=== PATIENT | female | born 1970 | race Caucasian/White ===

== ENCOUNTER 2020-11-26 22:03 | Emergency (ER) | payer OTHER, SELFPAY ==
--- NOTE | ~2020-11-26 | CT_ITS ---
EXAMINATION: CTA chest PE abdomen pel EXAM DATE: 11/27/2020 01:13 INDICATION: Elevated D-dimer, tachycardia. TECHNIQUE: Spiral CTA of the chest (pulmonary arteries) was performed with 100 cc Omnipaque 350 intr avenous contrast injection. Images were acquired during the pulmonary arterial phase. Coronal maxi mum intensity projection 3D-reconstructions were created by the technologist on dedicated workstation . Axial, coronal and sagittal reformatted images were reviewed. Spiral CT of the abdomen and pelvis was then performed with the same intravenous contrast injection. Axial, coronal and sagittal reform atted images were reviewed. The dose-length product (DLP) for this examination was 2289.47 mGy-cm. The exposure was tailored according to patient size (auto mA exposure control), and iterative recons truction (ASIR) was used as additional dose reduction technique. There is no prior study for compari son. FINDINGS: CHEST: Suboptimal pulmonary arterial opacification, the aorta is more opacified. No central pulmonar y emboli or filling defects suspected. No thoracic aortic dissection. The lungs are clear. There are no pleural or pericardial effusions. Tracheobronchial tree is patent. There is no mediastinal , hilar or axillary lymphadenopathy. There is no pneumothorax. Heart normal in size. No evidenc e of coronary arterial calcification. ABDOMEN PELVIS: There is delayed left-sided nephrogram with mild left hydroureteronephrosis, mildly d iffusely edematous and enlarged left kidney. Probably the result of low density stone obstructing the ureteropelvic junction which appears linear, about 4 mm in diameter on the axial sequences by about 1 cm in length. Large much more dense stones casting the left inferior moiety. There is a 4.4 cm cyst ic region in the lower pole of the left kidney with cortical thinning, and a dependent stone inside o f it measuring 7 mm, probably a chronically obstructed inferior calyx. There are several regions of i ll-defined left renal cortical enhancement which are suspicious for acute pyelonephritis. There is mo derate left perinephric fat stranding. Several punctate right calyceal stones. There is right liver lobe, segment 7 lesion with incomplete peripheral nodular enhancement consistent with hemangioma measuring 2.7 cm. The liver, spleen, adrenal glands and pancreas are otherwise unre markable. Gallbladder is unremarkable. No biliary obstruction. The uterus is unremarkable. The bladder is unremarkable. There is no retroperitoneal or pelvic lymphadenopathy. The appendix is normal. The stomach and small bowel are unremarkable. There is expected amount of c olonic stool. No free intraperitoneal gas. There are no osteoblastic or osteolytic lesions identi fied. The pelvic floor was excluded from the study. IMPRESSION: 1. Low-density left UPJ stone, mild hydronephrosis. Delayed nephrogram and heterogeneous left renal e nhancement suspicious for pyelonephritis. Large left inferior moiety stone. consult. 2. Punctate right nephrolithiasis. 3. Liver hemangioma. Reviewed, dictated and finalized at location A. IMPRESSION: 1. Low-density left UPJ stone, mild hydronephrosis. Delayed nephrogram and hete rogeneous left renal enhancement suspicious for pyelonephritis. Large left infe rior moiety stone. consult. 2. Punctate right nephrolithiasis. 3. Liver hemangioma.
[2020-11-26 22:15] VITALS: BP 100/63; PULSE 122; RESP 20; TEMP 36.9; O2SAT 100
--- NOTE | 2020-11-26 22:29 | ECG_ITS ---
Measurements Intervals [place] Rate: 115 P: 75 FL: 137 QRS: 42 QRSD: 92 T: 56 QT: 298 QTc: 413 Interpretive Statements SINUS TACHYCARDIA EARLY PRECORDIAL R/S TRANSITION BASELINE ARTIFACT- I, II, III, AVR, AVL, AVF, V5-V6 ABNORMAL ECG Electronically Signed On 11-28-2020 6:59:12 CDT by Nader Walls D.O.
--- NOTE | 2020-11-26 22:30 | ED.GENADULT ---
HPI - General Adult General Chief complaint: Abdominal Pain Stated complaint: sweaty, body aches,chills Source: patient Mode of arrival: ambulatory Limitations: no limitations History of Present Illness HPI narrative: Amanda is a 50F with a PMH of recent shoulder surgery but otherwise healthy that presented to ED feeling ill for a couple days. She started having chills and body aches 2 days ago that started in her shoulders and went down her back. Now they are the worst in her abdomen and go to her back worse on the left than the right. She has SOB but no CP. She admits nausea but no vomiting. She admits abdominal cramps but no diarrhea. She does not have her covid vaccine. Related Data Home Medications Medication Instructions Recorded Confirmed montelukast [Singulair] 10 mg PO DAILY 11/26/20 11/27/20 oxycodone-acetaminophen See Rx Instructions .ROUTE .COMPLEX 11/27/20 11/27/20 Allergies Allergy/AdvReac Type Severity Reaction Status Date / Time No Known Allergies Allergy Verified 11/27/20 04:16 Review of Systems Constitutional: Constitutional: Reports chills and Reports fatigue Eyes: Eyes: Reports no additional eye complaints ENT: Reports system reviewed and no additional complaints, except as documented Cardiovascular: Cardiovascular: Reports no additional cardiovascular complaints Respiratory: Respiratory: Reports as per HPI Gastrointestinal: Gastrointestinal: Reports abdominal pain, Denies diarrhea, Reports nausea and Denies vomiting Genitourinary: Genitourinary: Reports no additional female genitourinary complaints Musculoskeletal: Musculoskeletal: Reports myalgias and Reports muscle cramps Integumentary/Breasts: Skin/Breast: Reports system reviewed and no additional complaints, except as docu Neurologic: Reports system reviewed and no additional complaints, except as documented Psychiatric: Psychiatric: Reports no additional psychiatric complaints Endocrine: Endocrine: Reports no additional endocrine complaints Hematologic/Lymphatic: Hematologic/Lymphatic: Reports no additional hematologic/lymphatic complaints Allergic/Immunologic: Allergic/Immunologic: Reports no additional allergic/immunologic complaints [facility] Past Medical History Medical History (Updated 11/28/20 @ 07:54 by Harsha Lara MD) Hydronephrosis, left Kidney stone Obesity Sepsis Family History Family History Mother Pancreatic cancer Father Hypothyroidism Social History Social History Smoking status: Never smoker Second hand tobacco smoke exposure: No Drinks per week: 12 Substance use: current Substance use type: marijuana Last use: 11/23/20 Spiritual care concerns: No Exam Const: General: alert; No confusion Orientation/consciousness: patient oriented x3 Limitations: No altered mental status Other: In mild distress. HENMT: Head: normal to inspection Other: atrauamtic Eyes: Conjunctivae: conjunctivae normal Pupils: Equal, round and reactive pupils present Neck: Neck: normal visual inspection Chest: Chest palpation & inspection: normal inspection of the chest Resp: Effort & Inspection: normal respiratory effort, not labored, no retractions and no use of accessory muscles Auscultation: clear to auscultation bilaterally Cardio: Rate: tachycardic Rhythm: regular rhythm Heart sounds: no murmurs GI: Inspection: non-distended GI Palp: Yes Soft to palpation, Yes Tenderness to palpation present (GI) (Diffuse TTP ), No Guarding due to palpation present (GI) and No Rigid due to palpation : Other: Left sided CVA tenderness Skin: General skin exam: normal color Rashes: no rashes Neuro: General: patient oriented x3, moves all extremities, no focal motor deficits and CN's II-XI intact bilaterally Extrem: General: normal to inspection Psych: Appearance: grossly normal Mental St
[2020-11-26] MEDS: KETOROLAC 30 MG/ML VIAL (*BKC) IV PUSH (22:50)
[2020-11-26] MEDS: LACTATED RINGERS 1,000 ML 999 ML IV CONT (22:59)
[2020-11-26] MEDS: ONDANSETRON INJ 4 MG/2 ML VIAL IV PUSH (23:00)
[2020-11-26 23:45] LABS: Hematocrit 39.4 % (35.0-49.0); Mean Platelet Volume 11.6 fl (9.2-11.8); Platelet Count Result 184 K/mm3 (150-420); Red Blood Count 4.33 M/mm3 (4.20-5.40); Red Cell Distribution Width 14.5 % (11.6-14.4)
[2020-11-26 23:56] LABS: Lactic Acid Reflex 2.8 mmol/L (0.4-2.0)
[2020-11-27] LABS: INR 1.1; Prothrombin Time 11.3 Seconds (9.50-12.10)
[2020-11-27 00:04] LABS: Alanine Aminotransferase 22 U/L (14-59); Albumin Level 2.5 g/dL (3.4-5.0); Alkaline Phosphatase 206 U/L (46-116); Anion Gap 12 mmol/L (8-16); Aspartate Amino Transferase 30 U/L (15-37); Blood Urea Nitrogen 17 mg/dL (7-18); Calcium 8.7 mg/dL (8.5-10.1); Carbon Dioxide 26 mmol/L (21-32); Chloride 101 mmol/L (98-108); Estimated CRCL calculation 47 ml/min; Estimated Glomerular Filt Rate 33; Glucose 108 mg/dL (70-99); Lipase 45 U/L (73-393); Osmolality Calculated 290 mOsm/kg (285-295); Potassium 3.3 mmol/L (3.5-5.1); Sodium 139 mmol/L (136-145); Total Protein 6.6 g/dL (6.4-8.2)
[2020-11-27 00:11] LABS: Influenza Control Valid (Valid)
[2020-11-27 00:11] LABS: SARS-CoV-2 Ag Negative (Negative)
[2020-11-27 00:12] LABS: CRP > 25.0 mg/dL (0.0-0.9)
[2020-11-27 00:13] LABS: Thyroid Stimulating Hormone 0.72 uIU/mL (0.36-3.74)
[2020-11-27 00:15] LABS: White Blood Count 21.8 K/mm3 (4.8-10.8)
[2020-11-27 00:27] LABS: Appearance Urine Clear (Clear); Bilirubin Urine 1+ (Negative); Color Urine Yellow (Yellow); Glucose Urine UA Negative (Negative); Ketones Urine Negative (Negative); Leukocyte Esterase Ur 1+ (Negative); Nitrate Urine Negative (Negative); Protein Urine 2+ (Negative); Urobilinogen Urine 0.2 mg/dL (0.2-1.0); pH Urine 5.5 (5.0-8.0)
[2020-11-27] MEDS: SODIUM CHLORIDE 0.9% IV 1,000 ML 999 ML IV CONT (00:31)
[2020-11-27 00:37] LABS: Add Urine Microscopic? YES; Blood Urine Trace-Intact (Negative); RBC Urine 0-2 /hpf (0-2); Squamous Epithelial Cell Urine Many /hpf (Few); WBC Clumps Urine Present /hpf; WBC Urine 21-30 /hpf (0-3)
[2020-11-27 00:38] LABS: Amorphous Sediment Urine Moderate; Bacteria Urine 4+ /hpf; Pregnancy On Board Control Positive; Urine Pregnancy Test Negative
[2020-11-27 01:25] LABS: Band Neutrophils Percent 13 % (0-6); Basophils Percent Manual 0 % (0-1); Eosinophils Absolute Manual 0.21 K/mm3 (0.02-0.5); Eosinophils Percent Manual 1 % (1-6); Lymphocytes Absolute Manual 0.87 K/mm3 (1.1-4.5); Lymphocytes Percent Manual 4 % (18-44); Metamyelocytes Percent 4 %; Monocytes Absolute Manual 0.43 K/mm3 (0.1-0.90); Monocytes Percent Manual 2 % (3-9); Myelocytes Percent 2 %; Neutrophils Absolute Manual 18.96 K/mm3 (1.7-7.2); Neutrophils Percent Manual 74 % (46-73); Total Cells Counted 100
[2020-11-27 01:26] LABS: Large Platelets Present; Platelet Estimate Adequate (Adequate); Toxic Granulation Present (NORMAL)
[2020-11-27] MEDS: MORPHINE SULFATE (*CRX) 4 MG/ML INJ IV PUSH (02:14)
[2020-11-27] MEDS: SODIUM CHLORIDE 0.9% IV 1,000 ML 150 ML IV CONT (02:14)
[2020-11-27 02:33] VITALS: BP 109/71; PULSE 97; RESP 16; TEMP 36.6; O2SAT 97
[2020-11-27 02:37] LABS: Reflex Lactic Acid Yes or No Add Lactic
[2020-11-27 02:40] LABS: SARS-CoV-2 RNA PCR Negative (Negative)
== END 2020-11-27 03:00 | disposition short-term general hospital (02) ==
PROVIDERS: Emergency Provider Family Medicine; PCP Family Medicine
DX: A41.9 Sepsis, unspecified organism (principal); N20.0 Calculus of kidney; Z20.822 Contact with and (suspected) exposure to COVID-19
CPT/HCPCS: 36415; 71275; 74177; 80053; 81001; 81025; 83605; 83690; 84443; 84484; 85025; 85060; 85380; 85610; 86140; 87040; 87077; 87086; 87088; 87147; 87186; 87426; 87804; 93005; 96361; 96365; 96366; 96374; 96375; 99285; C9803; J0692; J0696; J1885; J2270; J2405; J7030; J7120; Q9967; U0003; U0005

== ENCOUNTER 2020-11-27 18:03 | Inpatient (IN) | payer OTHER, SELFPAY ==
[2020-11-27] VITALS (14 sets, daily range): BP systolic 96–128; BP diastolic 50–91; PULSE 87–118; RESP 18–28; TEMP 36.2–37.7; O2SAT 95–100; BMI 32.7; BMI 33.7
--- NOTE | ~2020-11-27 | XR_ITS ---
EXAMINATION: XR stent/kub surgery DATE: 11/27/2020 22:04 INDICATION: Left ureteral stent placement TECHNIQUE: 4 fluoroscopic images of the abdomen and pelvis were obtained during procedure performed joseph Crooks. Radiologist was not present for the imaging or procedure. The amount of fluoroscopy matilda e used during this procedure was 0.3 minutes. COMPARISON: CT dated 11/27/2020 FINDINGS: Window Glazier images demonstrate large stone/stones at the left kidney. Subsequent images demonstrate placeme nt of a left internal ureteral stent with loops formed over the expected location of the left renal p vishnu and bladder. There are some nondilated gas-filled loops bowel scattered throughout the abdomen and pelvis. Phlebolith in the right hemipelvis. IMPRESSION: 1. Left nephrolithiasis with placement of a left internal ureteral stent in expected position. See pr ocedure note for further detail. Reviewed, dictated and finalized at location A. IMPRESSION: 1. Left nephrolithiasis with placement of a left internal ureteral stent in exp ected position. See procedure note for further detail.
--- NOTE | 2020-11-27 03:52 | ADMGEN ---
This patient, Amanda Dempsey, was admitted to IMU Room 209-01 on 11/27/20 at 0335. Patient/family oriented to hospital policies and general routines including ID bracelet, bed and alarms, visiting hours, pain management, procedures, bathroom and other care routines, personal items, smoking policy, room service/diet, and visiting hours. Information on how to activate the Rapid Response Team has been discussed. Patient/Family are encouraged to report perceived risks to care and to ask questions if they do not understand what they are told or what they should do.
[2020-11-27] MEDS: SODIUM CHLORIDE 0.9% IV 1,000 ML 150 ML IV CONT ×3 (04:38→19:27)
[2020-11-27] MEDS: CALCIUM CARBONATE (TUMS) 500 MG (200 MG ELEMENTAL) PO ×2 (04:38→17:36)
--- NOTE | 2020-11-27 05:14 | PM.IMHP ---
H&P: HPI History of Present Illness Date/Time: 11/27/20 05:14 Chief Complaint: Fever flank pain Narrative: Amanda is a 50F with a PMH of recent shoulder surgery in July 2020 after a fall injury presents with feeling ill since past few days. She reports that she was started having chills and body aches 2 days ago along with fever. She also reported pain in her abdomen more on the left side of the right. It admits to nausea but no vomiting. She denies any urinary complaints with no burning her frequency of urination. She was evaluated initially for COVID which came back negative. Further investigation showed elevated white cell count at 21,000 8 and positive urinalysis punctate calcific material within the proximal left ureter consistent with obstructing U stones along with mild left hydronephrosis. Abnormal enhancement of the left kidney with perinephric fat stranding. Multiple cortical cysts. Regions of decreased perfusion within the medial left kidney which could potentially represent pyelonephritis in the appropriate clinical setting. Lungs were clear with no pleural effusion or pneumothorax. She was noted to be septic with tachycardia and febrile on presentation she got 3 L of fluids in the [facility] ER. She is transferred to our hospital for further evaluation and management Review of Systems Review of Systems: - CONSTITUTIONAL: Denies weight loss, reports fever and chills. - HEENT: Denies changes in vision and hearing - RESPIRATORY: Denies SOB and cough. - CV: Denies palpitations and CP. - GI: Reports abdominal pain, nausea, denies vomiting and diarrhea. - : Denies dysuria and urinary frequency. - MSK: Reports myalgia and joint pain. - SKIN: Denies rash and pruritus. - NEUROLOGICAL: Denies headache and syncope. - PSYCHIATRIC: Denies recent changes in mood. Denies anxiety and depression. All systems reviewed & are unremarkable except as noted in HPI and below Constitutional: Constitutional: Reports fatigue and Reports weakness Neurologic: Reports weakness Endocrine: Endocrine: Reports fatigue [facility] Family History Family History Mother Pancreatic cancer Father Hypothyroidism Social History Social History Smoking status: Never smoker Second hand tobacco smoke exposure: No Drinks per week: 12 Substance use: current Substance use type: marijuana Last use: 11/23/20 Spiritual care concerns: No Meds Home Medications and Allergies Home Medications Medication Instructions Recorded Confirmed Type montelukast [Singulair] 10 mg PO DAILY 11/26/20 11/27/20 History oxycodone-acetaminophen See Rx Instructions .ROUTE .COMPLEX 11/27/20 11/27/20 History Allergies Allergy/AdvReac Type Severity Reaction Status Date / Time No Known Allergies Allergy Verified 11/27/20 04:16 Vital Signs Vital Signs - 24 hr 11/27/20 03:45 11/27/20 04:46 Temperature 97.1 F L 99.8 F H Pulse Rate 95 Respiratory Rate 18 Blood Pressure 113/50 L Pulse Oximetry 100 Exam Narrative: GENERAL: The patient is well developed, in mild distress HEENT: Nonicteric sclerae, PERRLA, EOMI. Oropharynx clear. Dry mucous membranes. Conjunctivae appear well perfused. CHEST: Chest wall is nontender. HEART: Regular rate and rhythm without murmur, rubs, or gallops LUNGS: Clear to auscultation bilaterally. no respiratory distress ABDOMEN: Soft, positive bowel sounds, tender left upper quadrant and left renal angle, no organomegaly. SKIN: No rash, no excessive bruising, petechiae, or purpura. NEUROLOGIC: Cranial nerves II-XII intact, alert and oriented x 3, no gross motor deficits EXTREMITIES: no edema, cyanosis or clubbing Extrem: General: normal exam except as noted and no edema Assessment and Plan Assessment and plan (1) Sepsis: Code(s): A41.9 - Sepsis, unspecified organism Status:
[2020-11-27] MEDS: FAMOTIDINE 20 MG/2 ML VIAL IV PUSH (05:45)
[2020-11-27] MEDS: LORazepam INJ (*CRX) 2 MG/ML VIAL 0.5 MG IV PUSH (05:47)
[2020-11-27 06:35] LABS: Basophils Absolute Auto 0.1 K/mm3 (0.0-0.1); Basophils Percent Auto 0.5 % (0.2-1.2); Eosinophils Percent Auto 0.1 % (0-4.4); Hematocrit 32.4 % (37.0-47.0); Hemoglobin 11.1 g/dL (12.0-15.0); Immature Granulocyte Absolute 0.37 K/mm3 (0.00-0.031); Immature Granulocyte Percent A 2.3 % (0-0.5); Lymphocytes Absolute Auto 0.31 K/mm3 (0.9-3.2); Lymphocytes Percent Auto 1.9 % (18.3-44.2); Mean Corpuscular HGB Conc 34.3 g/dl (32-36); Mean Corpuscular Hemoglobin 29.9 pg (26-34); Mean Corpuscular Volume 87.3 fl (80-100); Mean Platelet Volume 11.5 fl (7.4-10.4); Monocytes Absolute Auto 0.4 K/mm3 (0.1-0.6); Monocytes Percent Auto 2.6 % (2.6-8.5); Neutrophils Absolute Auto 15.2 K/mm3 (1.3-6.7); Neutrophils Percent Auto 92.6 % (45.5-73.1); Platelet Count Result 156 k/mm3 (150-375); Red Blood Count 3.71 M/mm3 (4.2-5.4); Red Cell Distribution Width 14.6 % (11.5-14.5); White Blood Count 16.4 K/mm3 (4.5-10.0)
[2020-11-27 06:50] LABS: Lactic Acid Reflex 1.4 mmol/L (0.7-2.1)
[2020-11-27 06:52] LABS: Alanine Aminotransferase 18 U/L (4-35); Albumin Level 2.9 g/dL (3.5-5.1); Alkaline Phosphatase 189 U/L (38-126); Anion Gap 10 mmol/L (8-16); Aspartate Amino Transferase 27 U/L (14-36); Bilirubin,Total 0.8 mg/dL (0.2-1.3); Blood Urea Nitrogen 17 mg/dL (7-17); Calcium 8.1 mg/dL (8.4-10.2); Carbon Dioxide 21 mmol/L (22-30); Chloride 105 mmol/L (98-107); Estimated CRCL calculation 60 ml/min; Estimated Glomerular Filt Rate 44; Glucose 125 mg/dL (65-110); Magnesium 1.4 mg/dL (1.6-2.3); Potassium 3.3 mmol/L (3.4-5.0); Sodium 136 mmol/L (137-145)
[2020-11-27] MEDS: ENOXAPARIN 40 MG/0.4 ML SYRINGE SUB-Q (08:40)
[2020-11-27] MEDS: MONTELUKAST SODIUM 10 MG TABLET PO (08:40)
--- NOTE | 2020-11-27 09:10 | WPDURCON ---
Assessment and Plan Assessment and plan (1) Kidney stone: Code(s): N20.0 - Calculus of kidney Status: Acute Assessment and Plan: She has a left staghorn renal calculus. There is a hint of a tiny calculus in the left proximal ureter without hydroureter. The bulk of the stone is in the renal pelvis and left lower pole of the kidney. There appears to be a fluid collection distal to the staghorn calculus. She will need to continue antibiotic management. After the acute infection has been treated, she will need a percutaneous nephrolithotomy to fully treat the stone. (2) Pyelonephritis: Code(s): N12 - Tubulo-interstitial nephritis, not specified as acute or chronic Status: Acute Assessment and Plan: She likely has pyelonephritis related to the left staghorn calculus. There is a fluid collection in the lower pole of the kidney, either hydronephrosis behind the stone or a developing renal abscess. It is less likely that the fluid collection is a cyst based on the scan appearance. To fully treat the infection, this may need to be drained. This is not in a location amenable for a stent placement. She may need a percutaneous nephrostomy tube by interventional radiology. I have discussed this with her medical team who is planning on consulting interventional radiology. She is clinically improving with antibiotics and supportive care. Urology Consult Note HPI Date Seen: 11/27/20 Requesting Physician: Rc Saha MD Primary Care Provider: Min GimenezMD Consult Narrative Narrative: Amanda Dempsey is a 50 year old female with a left staghorn calculus and infection. She presented to [facility] yesterday with fever and chills and was transferred to [place] for further work up. Work up revealed a possible UTI and a CT scan was concerning for obstructive uropathy, so urology was consulted. I reviewed the CT scan. There is a left staghorn renal calculus. There is no hydroureter. There is a fluid collection in the lower pole of the kidney. This could be hydronephrosis behind the staghorn in the lower pole versus a developing renal abscess. Currently the patient is feeling a little better after receiving antibiotics. She does not have flank pain. She had no pain prior to the development fo the infection. She has not seen hematuria. Review of Systems Review of Systems: All systems reviewed & are unremarkable except as noted in HPI and below (the ROS below) Constitutional: Constitutional: Reports body ache(s) and Reports chills Respiratory: Respiratory: Reports no additional respiratory complaints Genitourinary: Genitourinary: Reports no additional female genitourinary complaints [facility] Family History Family History Mother Pancreatic cancer Father Hypothyroidism Social History Social History Smoking status: Never smoker Second hand tobacco smoke exposure: No Drinks per week: 12 Substance use: current Substance use type: marijuana Last use: 11/23/20 Spiritual care concerns: No Meds Home Medications and Allergies Home Medications Medication Instructions Recorded Confirmed Type montelukast [Singulair] 10 mg PO DAILY 11/26/20 11/27/20 History oxycodone-acetaminophen See Rx Instructions .ROUTE .COMPLEX 11/27/20 11/27/20 History Allergies Allergy/AdvReac Type Severity Reaction Status Date / Time No Known Allergies Allergy Verified 11/27/20 04:16 Vital Signs Vital Signs - 24 hr 11/27/20 03:45 11/27/20 04:46 11/27/20 05:49 Temperature 36.2 C L 37.7 C H 37.7 C H Pulse Rate 95 Respiratory Rate 18 Blood Pressure 113/50 L Pulse Oximetry 100 11/27/20 06:00 11/27/20 06:19 11/27/20 08:00 Temperature 37.0 C 36.3 C L Pulse Rate 118 H 102 H Respiratory Rate 18 Blood Pressure 118/65 Pulse Oximetry 97 Exam Const: General: cooperat
[2020-11-27] MEDS: ONDANSETRON INJ 4 MG/2 ML VIAL IV PUSH (10:26)
[2020-11-27] MEDS: oxyCODONE/ACETAMINOPHEN (*CRX) 5-325 MG TABLET PO (10:33)
[2020-11-27] MEDS: MORPHINE SULFATE (*CRX) 2 MG/ML INJ IV PUSH (15:35)
--- NOTE | 2020-11-27 15:36 | PM.IMPN ---
Progress Note: A&P Assessment and Plan (1) Sepsis: Code(s): A41.9 - Sepsis, unspecified organism Status: Acute Assessment and Plan: Urosepsis Likely secondary to left pyelonephritis, related to obstructive uropathy with mild hydronephrosis. CT evidence of punctuate calcific material within the proximal left ureter consistent with obstructing stone. Patient was appropriately started on cefepime that we will continue. Repeat lactate has improved from 2.8 to 1.4. The leukocytosis has also improved from 21.8 to 16.4. (2) Kidney stone: Code(s): N20.0 - Calculus of kidney Status: Acute Assessment and Plan: Obstructive uropathy with mild hydronephrosis. Npehrostomy drainage by interventional radiology in AM NPO after midnight. (3) Hydronephrosis, left: Code(s): N13.30 - Unspecified hydronephrosis Status: Acute Assessment and Plan: Secondary to staghorn calculus. Medical management of lyelonephritis and drain placement in AM. Plan for lithotrypsy for definitive management. (4) Pyelonephritis: Code(s): N12 - Tubulo-interstitial nephritis, not specified as acute or chronic Status: Acute (5) Humerus fracture: Code(s): S42.309A - Unspecified fracture of shaft of humerus, unspecified arm, initial encounter for closed fracture Status: Acute Assessment and Plan: Curently asymptomatic. (6) Acute kidney injury: Code(s): N17.9 - Acute kidney failure, unspecified Status: Acute Assessment and Plan: Recovering acute kidney injury. Creatinine has improved from 1.6 to 1.3. Patient has made 700ccs of urine ovrnight. MOnitor I and Os. Avoid nephrotoxic medications. Additional Plan DVT prophylaxis Lovenox Subjective Date/time seen: 11/27/20 19:36 This is a 50-year lady with a PMH including but not limited to recent shoulder surgery in July 2020 after a fall related injury who presents after feeling ill since past few days. She reports that she was started having chills and body aches 2 days ago along with fever. She also reported pain in her abdomen more on the left side of the right. It admits to nausea but no vomiting. She denies any urinary complaints., COVID came back negative. Further investigation showed elevated white cell count at 21,000 and positive urinalysis punctate calcific material within the proximal left ureter consistent with obstructing U stones along with mild left hydronephrosis. Abnormal enhancement of the left kidney with perinephric fat stranding. Multiple cortical cysts. Regions of decreased perfusion within the medial left kidney which could potentially represent pyelonephritis in the appropriate clinical setting. She was noted to be septic with tachycardia and febrile on presentation she got 3 L of fluids in the [facility] ER. She is transferred to our hospital for further evaluation and management. She was started on IV antibiotics and is being evaluated by urology. S: Patient is examined at the bedside. She is feeling much better. No complaints. Review of Systems Review of Systems: All systems reviewed & are unremarkable except as noted in HPI and below Constitutional: Constitutional: Reports fatigue and Reports weakness Neurologic: Reports weakness Endocrine: Endocrine: Reports fatigue Exam Narrative: GENERAL: The patient is well developed, in mild distress HEENT: Nonicteric sclerae, PERRLA, EOMI. Oropharynx clear. Dry mucous membranes. Conjunctivae appear well perfused. CHEST: Chest wall is nontender. HEART: Regular rate and rhythm without murmur, rubs, or gallops LUNGS: Clear to auscultation bilaterally. no respiratory distress ABDOMEN: Soft, positive bowel sounds, tender left upper quadrant and left renal angle, no organomegaly. SKIN: No rash, no excessive bruising, petechiae, or purpura. NEUROLOGIC: Cranial nerves II-XII intact, alert and oriented x 3, no gross motor deficits EXTREMITIES: no edema, cyano
--- NOTE | 2020-11-27 21:28 | PC.NURSE ---
spoke to dr mann and he has decided to take patient to surgery. patient is taken down to surgery. patient is going to reporting coordinator rm 5 after procedure.
--- NOTE | 2020-11-27 21:34 | WPDANESEPPF ---
Anes - Initial Pre Proc Eval Procedure: Operation Date: 11/27/20 21:00 Proposed Procedures p Cystoscopy, Left Ureteral Stent Placement - Colton Crooks MD Date/Time: 11/27/20 21:34 Surgeon: Rc Saha MD Pre Op Diagnosis: Sepsis, UTI Patient Data Age: 50 Gender: F Height: 1.75 m Weight: 100.5 kg Last Vital Signs Temp 36.3 C L 11/27/20 19:39 Pulse 107 H 11/27/20 20:00 Resp 20 11/27/20 20:00 BP 96/53 L 11/27/20 19:39 Pulse Ox 100 11/27/20 20:00 Allergies Allergy/AdvReac Type Severity Reaction Status Date / Time No Known Allergies Allergy Verified 11/27/20 04:16 Home Medications Medication Instructions Recorded Confirmed Type montelukast [Singulair] 10 mg PO DAILY 11/26/20 11/27/20 History oxycodone-acetaminophen See Rx Instructions .ROUTE .COMPLEX 11/27/20 11/27/20 History Laboratory Tests 11/27/20 11/27/20 11/27/20 06:17 06:17 06:17 WBC 16.4 K/mm3 H K/mm3 (4.5-10.0) RBC 3.71 M/mm3 L M/mm3 (4.2-5.4) Hgb 11.1 g/dL L g/dL (12.0-15.0) Hct 32.4 % L % (37.0-47.0) MCV 87.3 fl fl (80-100) MCH 29.9 pg pg (26-34) MCHC 34.3 g/dl g/dl (32-36) RDW 14.6 % H % (11.5-14.5) Plt Count 156 k/mm3 k/mm3 (150-375) MPV 11.5 fl H fl (7.4-10.4) Immature Gran % (Auto) 2.3 % H % (0-0.5) Neut % (Auto) 92.6 % H % (45.5-73.1) Lymph % (Auto) 1.9 % L % (18.3-44.2) Brooks % (Auto) 2.6 % % (2.6-8.5) Eos % (Auto) 0.1 % % (0-4.4) Baso % (Auto) 0.5 % % (0.2-1.2) Lymph # (Auto) 0.31 K/mm3 L K/mm3 (0.9-3.2) Brooks # (Auto) 0.4 K/mm3 K/mm3 (0.1-0.6) Eos # (Auto) 0.0 K/mm3 K/mm3 (0-0.3) Baso # (Auto) 0.1 K/mm3 K/mm3 (0.0-0.1) Abs Immat Gran (auto) 0.37 K/mm3 H K/mm3 (0.00-0.031) Absolute Neuts (auto) 15.2 K/mm3 H K/mm3 (1.3-6.7) Absolute Nucleated RBC 0.0 K/mm3 K/mm3 (0.0-0.012) Nucleated RBC % 0.0 % % (0.0-0.2) Sodium 136 mmol/L L mmol/L (137-145) Potassium 3.3 mmol/L L mmol/L (3.4-5.0) Chloride 105 mmol/L mmol/L (98-107) Carbon Dioxide 21 mmol/L L mmol/L (22-30) Anion Gap 10 mmol/L mmol/L (8-16) BUN 17 mg/dL mg/dL (7-17) Creatinine 1.30 mg/dL H mg/dL (0.7-1.0) Estim Creat Clear Calc 60 ml/min ml/min Estimated GFR 44 L (59 - ) Glucose 125 mg/dL H mg/dL (65-110) Lactic Acid 1.4 mmol/L mmol/L (0.7-2.1) Calcium 8.1 mg/dL L mg/dL (8.4-10.2) Magnesium 1.4 mg/dL L mg/dL (1.6-2.3) Total Bilirubin 0.8 mg/dL mg/dL (0.2-1.3) AST 27 U/L U/L (14-36) ALT 18 U/L U/L (4-35) Alkaline Phosphatase 189 U/L H U/L (38-126) Total Protein 6.0 g/dL L g/dL (6.3-8.2) Albumin 2.9 g/dL L g/dL (3.5-5.1) Patient hx anesthesia problems: none Family hx anesthesia problems: none Results Review: All pre-operative results and documents have been reviewed as part of the pre-operative evaluation. [facility] Past Medical History Medical History (Updated 11/27/20 @ 21:36 by Martín Unger MD) Hydronephrosis, left Kidney stone Obesity Sepsis Family History Family History Mother Pancreatic cancer Father Hypothyroidism Social History Social History Smoking status: Never smoker Second hand tobacco smoke exposure: No Drinks per week: 12 Substance use: current Substance use type: marijuana Last use: 11/23/20 Spiritual care concerns: No Anes - Eval Final PreProcedure Day of Procedure 11/27/20 21:34 Patient weight: obese Heart: regular rate and rhythm Lungs: clear to auscultation and normal air movement
[2020-11-27] MEDS: LACTATED RINGERS 1,000 ML 30 ML IV CONT ×2 (21:38→22:31)
[2020-11-27] MEDS: LIDOCAINE HCL 2% GEL UROJET 10 ML PKG MUCOUS MEM (22:00)
--- NOTE | 2020-11-27 22:05 | P.OP_ITS ---
Procedure Note - Detailed Date of Procedure 11/27/20 Pre-op Diagnosis Sepsis, UTI Post-op Diagnosis same Procedure Performed cystoscopy with left retrograde pyelogram and stent placement Surgeon Colton Crooks MD Anesthesia general Indications worsening of sepsis and possible left ureter obstruction Findings filling defect in left ureter without visible stone on fluorsocopy; large lower pole staghorn calculus; purulent material from stent Description of Procedure The patient was brought to the operating room in stable condition. She was placed under general anesthesia. She was prepped and draped in sterile fashion. A 22 Icelandic cystoscope was placed through the urethra into the bladder. The left ureter orifice was identified. A wire was placed into the orifice followed by the open ended catheter. A retrograde pyelogram was performed showing a filling defect in the proximal ureter without a clear stone. The wire was replaced into the upper pole of the kidney. Under direct vision and fluoroscopic guidance, a 6 Icelandic variable length stent was placed. A good curl was seen in the renal pelvis and a good curl was seen in the bladder. Purulent material returned from the stent. The cystoscope was removed. A Charles catheter was placed. The patient was brought to the recovery room in stable condition. Implants 6 Icelandic ureteral stent Estimated Blood Loss 0 Urine Output 700 Drains No Packing No Pathology none sent Complications No immediate complications Condition stable Disposition PACU
--- NOTE | 2020-11-27 23:49 | PC.NURSE ---
This patient, Amanda Dempsey, was received from [[facility] ] on 11/27/20 at 2320. Patient/family oriented to unit policies and routines. Patient actually came here directly from PACU. Belongings were moved to new room.
[2020-11-28] VITALS (18 sets, daily range): BP systolic 109–137; BP diastolic 67–99; PULSE 71–97; RESP 13–20; TEMP 36.3–37; O2SAT 92–97
[2020-11-28] MEDS: oxyCODONE/ACETAMINOPHEN (*CRX) 5-325 MG TABLET PO ×4 (00:01→21:30)
--- NOTE | 2020-11-28 00:12 | PC.NURSE ---
Patient received 20mg IV pepcid from anesthesia so RN charted against 2100 dose.
--- NOTE | 2020-11-28 06:43 | PC.NURSE ---
RN zeroed patient's bed when she got up after surgery last night. When RN weighed patient this AM there was about a 10lb difference.
[2020-11-28] MEDS: SODIUM CHLORIDE 0.9% IV 1,000 ML 150 ML IV CONT ×3 (07:36→21:31)
--- NOTE | 2020-11-28 07:40 | PC.NURSE ---
YUMIKO REYES HERE TO SEE PT. CONTINUE IV ABX. MAY DISCONTINUE HERNANDEZ CATHETER.
[2020-11-28 07:48] LABS: Hematocrit 31.2 % (37.0-47.0); Hemoglobin 10.4 g/dL (12.0-15.0); Immature Platelet Fraction Pct 7.9 % (0.9-11.2); Mean Corpuscular HGB Conc 33.3 g/dl (32-36); Mean Corpuscular Hemoglobin 30.2 pg (26-34); Mean Corpuscular Volume 90.7 fl (80-100); Mean Platelet Volume 12.2 fl (7.4-10.4); Platelet Count Result 117 k/mm3 (150-375); Red Blood Count 3.44 M/mm3 (4.2-5.4); Red Cell Distribution Width 15.6 % (11.5-14.5); White Blood Count 16.1 K/mm3 (4.5-10.0)
[2020-11-28 07:52] LABS: Anion Gap 10 mmol/L (8-16); Blood Urea Nitrogen 20 mg/dL (7-17); Calcium 7.9 mg/dL (8.4-10.2); Carbon Dioxide 19 mmol/L (22-30); Chloride 109 mmol/L (98-107); Estimated CRCL calculation 65 ml/min; Estimated Glomerular Filt Rate 48; Glucose 105 mg/dL (65-110); Potassium 3.7 mmol/L (3.4-5.0); Sodium 138 mmol/L (137-145)
--- NOTE | 2020-11-28 07:53 | WPDUROPN2 ---
Progress Note: A&P Assessment and Plan (1) Pyelonephritis: Code(s): N12 - Tubulo-interstitial nephritis, not specified as acute or chronic Status: Acute Assessment and Plan: Cultures pending. Will need at least 2 weeks of antibiotics (2) Kidney stone on left side: Code(s): N20.0 - Calculus of kidney Status: Acute Assessment and Plan: Stent in place. Will need outpatient follow-up with Dr. Nielsen to discuss definitive stone management. Will likely need a percutaneous nephrolithotomy. Subjective Subjective Date/Time Seen: 11/28/20 07:53 Stent has been placed. Large stone burden noted and kidney Review of Systems Review of Systems: All systems reviewed & are unremarkable except as noted in HPI and below Exam Const: General: cooperative and awake HENMT: Head: normal to inspection Eyes: General: appearance normal, both eyes and all related structures Resp: Effort & Inspection: normal respiratory effort and able to speak in complete sentences GI: Inspection: normal to inspection Skin: General skin exam: normal color Neuro: General: patient oriented x3 Objective Data Vital Signs Vital Signs: Vital Signs - 24 hr 11/27/20 08:00 11/27/20 12:00 11/27/20 16:00 Temperature 97.3 F L 98 F 98.0 F Pulse Rate 87 95 115 H Respiratory Rate 18 18 20 Blood Pressure 118/65 107/66 105/50 L Pulse Oximetry 97 98 95 11/27/20 19:39 11/27/20 20:00 11/27/20 22:14 Temperature 97.4 F L 97.8 F Pulse Rate 116 H 105 H 113 H Respiratory Rate 20 20 24 H Blood Pressure 96/53 L 118/83 Pulse Oximetry 100 100 99 11/27/20 22:25 11/27/20 22:40 11/27/20 22:56 Temperature 97.4 F L Pulse Rate 101 H 98 97 Respiratory Rate 28 H 25 H 21 H Blood Pressure 128/84 119/84 117/91 H Pulse Oximetry 100 99 99 11/28/20 00:00 11/28/20 00:30 11/28/20 01:00 Temperature 97.4 F L Pulse Rate 94 95 89 Respiratory Rate 18 19 20 Blood Pressure 112/81 115/89 121/82 Pulse Oximetry 97 11/28/20 01:55 11/28/20 02:00 11/28/20 03:00 Temperature Pulse Rate 92 88 91 Respiratory Rate 16 18 Blood Pressure 119/69 109/67 Pulse Oximetry 11/28/20 04:00 11/28/20 05:58 11/28/20 07:51 Temperature 98.6 F 98.5 F Pulse Rate 87 91 71 Respiratory Rate 16 13 Blood Pressure 114/72 123/84 Pulse Oximetry 93 92 Intake/Output Intake/Output: Intake & Output 11/25/20 11/26/20 11/27/20 11/28/20 23:59 23:59 23:59 23:59 Intake Total 3750 1050 Output Total 2560 300 Balance 1190 750 Meds/Results Medications: Active Medications Generic Name Dose Route Start Last Admin Trade Name Freq PRN Reason Stop Dose Admin Al Hydrox/Mg Hydrox/Simethicone 30 ml 11/27/20 05:07 Mag Hydrox/Al Hydrox/Simeth 30 Ml Udc PO QID PRN Dyspepsia Calcium Carbonate 200 mg 11/27/20 04:20 11/27/20 17:36 Calcium Carbonate (Tums) 500 Mg (200 Mg Elemental) PO 200 mg Q6H PRN Administration Indigestion Enoxaparin Sodium 40 mg 11/27/20 09:00 11/27/20 08:40 Enoxaparin 40 Mg/0.4 Ml Syringe SUB-Q 40 mg DAILY DEMARCUS Administration Famotidine 20 mg 11/27/20 04:08 11/28/20 00:12 Famotidine 20 Mg/2 Ml Vial IV PUSH Not Given Q12HR DEMARCUS Sodium Chloride 1,000 mls @ 150 mls/hr 11/27/20 04:25 11/28/20 07:36 Normal Saline Iv IV CONT 150 mls/hr .Q6H40M DEMARCUS Administration Cefepime HCl 2 gm in 50 mls @ 100 mls/hr 11/27/20 18:00 11/28/20 07:00 Maxipime 2 Gm/D5w 50 Ml IVPB Infused Q12H DEMARCUS Infusion Montelukast Sodium 10 mg 11/27/20 09:00 11/27/20 08:40 Montelukast Sodium 10 Mg Tablet PO 10 mg DAILY DEMARCUS Administration Morphine Sulfate 2 mg 11/27/20 05:15 11/27/20 15:35 Morphine Sulfate (*Crx) 2 Mg/Ml Inj IV PUSH 2 mg Q4H PRN Administration Pain Rated 7-10 Ondansetron HCl 4 mg 11/27/20 05:07 11/27/20 10:26 Ondansetron Inj 4 Mg/2 Ml Vial IV PUSH 4 mg Q6H PRN Administration Nausea And Vomiting Oxycodone/Aceta
[2020-11-28 08:18] LABS: Band Neutrophils Percent 5 % (0-6); Eosinophils Absolute Manual 0.16 K/mm3 (0.02-0.5); Eosinophils Percent Manual 1 % (0-4); Lymphocytes Absolute Manual 1.44 K/mm3 (1.1-4.5); Monocytes Absolute Manual 0.48 K/mm3 (0.1-0.90); Monocytes Percent Manual 3 % (3-9); Neutrophils Percent Manual 82 % (46-73); Platelet Estimate Adequate (Adequate); Total Cells Counted 100
[2020-11-28] MEDS: ENOXAPARIN 40 MG/0.4 ML SYRINGE SUB-Q (09:40)
[2020-11-28] MEDS: FAMOTIDINE 20 MG/2 ML VIAL IV PUSH ×2 (09:40→20:48)
[2020-11-28] MEDS: MONTELUKAST SODIUM 10 MG TABLET PO (09:41)
--- NOTE | 2020-11-28 09:51 | WPDANESPN ---
Anes - Prog Note Post-Op Date/Time: 11/28/20 09:51 Cardiovascular status: normal Respiratory status: normal Airway patency: baseline Mental status: baseline Post-Op hydration status: normal Vital Signs: Last Vital Signs Temp 36.9 C 11/28/20 07:51 Pulse 71 11/28/20 07:51 Resp 13 11/28/20 07:51 BP 123/84 11/28/20 07:51 Pulse Ox 92 11/28/20 07:51 Pain Score (VAS): NO COMPLAINTS I/O: Intake & Output 11/27/20 11/28/20 11/28/20 23:59 07:59 15:59 Intake Total 2600 1050 Output Total 1860 300 Balance 740 750 Laboratory Tests 11/28/20 07:34 11/28/20 07:34 11/28/20 11/28/20 07:34 07:34 WBC 16.1 H RBC 3.44 L Hgb 10.4 L Hct 31.2 L MCV 90.7 MCH 30.2 MCHC 33.3 RDW 15.6 H Plt Count 117 L MPV 12.2 H Immature Gran % (Auto) Not Reportable Neut % (Auto) Not Reportable Lymph % (Auto) Not Reportable [place] % (Auto) Not Reportable Eos % (Auto) Not Reportable Baso % (Auto) Not Reportable Lymph # (Auto) Not Reportable [place] # (Auto) Not Reportable Eos # (Auto) Not Reportable Baso # (Auto) Not Reportable Abs Immat Gran (auto) Not Reportable Absolute Neuts (auto) Not Reportable Absolute Nucleated RBC Not Reportable Total Counted 100 Neutrophils % (Manual) 82 H Band Neutrophils % 5 Lymphocytes % (Manual) 9.0 L Monocytes % (Manual) 3 Eosinophils % (Manual) 1 Nucleated RBC % Not Reportable Abs Neuts (Manual) 14.00 H Abs Lymphs (Manual) 1.44 Abs Monocytes (Manual) 0.48 Absolute Eos (Manual) 0.16 Platelet Estimate Adequate % Immature Plt Fraction 7.9 Sodium 138 Potassium 3.7 Chloride 109 H Carbon Dioxide 19 L Anion Gap 10 BUN 20 H Creatinine 1.20 H Estim Creat Clear Calc 65 Estimated GFR 48 L Glucose 105 Calcium 7.9 L Microbiology 11/27/20 06:17 Blood Blood Culture - Preliminary 11/27/20 06:17 Blood Blood Culture - Preliminary Post-procedural complaints: none Patient Feedback: Patient satisfied with anesthetic care.
--- NOTE | 2020-11-28 09:55 | PC.NURSE ---
HERNANDEZ CATHETER DISCONTINUED ORDERED. TOLERATED WELL.
--- NOTE | 2020-11-28 14:37 | PM.IMPN ---
Progress Note: A&P Assessment and Plan (1) Sepsis: Code(s): A41.9 - Sepsis, unspecified organism Status: Inactive Assessment and Plan: Urosepsis Likely secondary to left pyelonephritis, related to obstructive uropathy with mild hydronephrosis. Patient is post op day 1 cystoscopy with left retrograde pyelogram and stent placement. Large lower pole staghorn calculus was identified; purulent material was recovered from stent. CT evidence of punctuate calcific material within the proximal left ureter consistent with obstructing stone. Patient was appropriately started on cefepime that we will continue. Repeat lactate has improved from 2.8 to 1.4. The leukocytosis has plateaued 16.4. Creartinine is improving slowly toward baseline. (2) Kidney stone: Code(s): N20.0 - Calculus of kidney Status: Inactive Assessment and Plan: Obstructive uropathy with mild hydronephrosis. Scheduled for percutaneous nephrolithotomy as an outpatient given large stone burden. (3) Hydronephrosis, left: Code(s): N13.30 - Unspecified hydronephrosis Status: Acute Assessment and Plan: Secondary to staghorn calculus. Medical management of pyelonephritis and s/p drain placement pn 11/27/2020. Plan for lithotripsy for definitive management. (4) Pyelonephritis: Code(s): N12 - Tubulo-interstitial nephritis, not specified as acute or chronic Status: Acute (5) Humerus fracture: Code(s): S42.309A - Unspecified fracture of shaft of humerus, unspecified arm, initial encounter for closed fracture Status: Acute Assessment and Plan: Curently asymptomatic. (6) Acute kidney injury: Code(s): N17.9 - Acute kidney failure, unspecified Status: Acute Assessment and Plan: Recovering acute kidney injury. Creatinine has improved from 1.3 to 1.2. Patient has made over 2.1 liters of urine overnight. Monitor I and Os. Avoid nephrotoxic medications. Additional Plan DVT prophylaxis Lovenox Subjective Date/time seen: Interval: ON 11/27/2020, the patient underwent a cystoscopy with left retrograde pyelogram and stent placement. Large lower pole staghorn calculus; purulent material was drained from stent. 11/28/20 14:37 S: Patient is examined at the bedside. She is feeling sore from yesterday's intervention. She reports bloating and constipation. Review of Systems Review of Systems: All systems reviewed & are unremarkable except as noted in HPI and below Constitutional: Constitutional: Reports body ache(s), Reports chills, Reports fatigue and Reports weakness Respiratory: Respiratory: Reports no additional respiratory complaints Genitourinary: Genitourinary: Reports no additional female genitourinary complaints Neurologic: Reports weakness Endocrine: Endocrine: Reports fatigue Exam Narrative: GENERAL: The patient is well developed, in mild distress HEENT: Nonicteric sclerae, PERRLA, EOMI. Oropharynx clear. Dry mucous membranes. Conjunctivae appear well perfused. CHEST: Chest wall is nontender. HEART: Regular rate and rhythm without murmur, rubs, or gallops LUNGS: Clear to auscultation bilaterally. no respiratory distress ABDOMEN: Soft, positive bowel sounds, tender left upper quadrant and left renal angle, no organomegaly. SKIN: No rash, no excessive bruising, petechiae, or purpura. NEUROLOGIC: Cranial nerves II-XII intact, alert and oriented x 3, no gross motor deficits EXTREMITIES: no edema, cyanosis or clubbing Const: General: cooperative, awake and ill appearing Nutritional Appearance: obese Orientation/consciousness: oriented to person, oriented to place, oriented to time and patient oriented x3 HENMT: Head: normal to inspection, normocephalic and atraumatic Ears: hearing grossly normal bilaterally and external ears normal Eyes: General: appearance normal, both eyes and all related structures EOM: EOMs intact bilaterally Resp: Effort & Inspection: normal respiratory
[2020-11-28] MEDS: SIMETHICONE 125 MG CHEW TAB PO (15:28)
[2020-11-28] MEDS: MAGNESIUM OXIDE 200 MG TABLET PO (20:48)
[2020-11-28] MEDS: DOCUSATE SODIUM 100 MG CAPSULE PO (20:48)
[2020-11-29] VITALS (13 sets, daily range): BP systolic 125–145; BP diastolic 75–99; PULSE 78–94; RESP 18–20; TEMP 35.7–37.4; O2SAT 91–99
[2020-11-29] MEDS: oxyCODONE/ACETAMINOPHEN (*CRX) 5-325 MG TABLET PO ×3 (03:57→19:59)
[2020-11-29] MEDS: SODIUM CHLORIDE 0.9% IV 1,000 ML 150 ML IV CONT ×3 (04:25→22:16)
--- NOTE | 2020-11-29 04:54 | PC.NURSE ---
For the second day in a row RN zeroed bed when patient went to the bathroom and weight is significantly off compared to what was previously charted in IMU. Weight today was 108kg. Therefore, RN didn't chart it in the computer and thinks it's best for patient to be weighed on a standing scale.
[2020-11-29 06:11] LABS: Basophils Percent Auto 0.3 % (0.2-1.2); Eosinophils Absolute Auto 0.1 K/mm3 (0-0.3); Hematocrit 28.7 % (37.0-47.0); Hemoglobin 9.9 g/dL (12.0-15.0); Immature Granulocyte Absolute 0.17 K/mm3 (0.00-0.031); Immature Granulocyte Percent A 1.4 % (0-0.5); Immature Platelet Fraction Pct 6.4 % (0.9-11.2); Lymphocytes Absolute Auto 1.17 K/mm3 (0.9-3.2); Lymphocytes Percent Auto 9.4 % (18.3-44.2); Mean Corpuscular HGB Conc 34.5 g/dl (32-36); Mean Corpuscular Hemoglobin 29.9 pg (26-34); Mean Corpuscular Volume 86.7 fl (80-100); Monocytes Absolute Auto 1.1 K/mm3 (0.1-0.6); Monocytes Percent Auto 8.7 % (2.6-8.5); Neutrophils Absolute Auto 9.8 K/mm3 (1.3-6.7); Neutrophils Percent Auto 79.2 % (45.5-73.1); Platelet Count Result 119 k/mm3 (150-375); Red Blood Count 3.31 M/mm3 (4.2-5.4); Red Cell Distribution Width 15.5 % (11.5-14.5); White Blood Count 12.4 K/mm3 (4.5-10.0)
[2020-11-29 06:26] LABS: Anion Gap 8 mmol/L (8-16); Blood Urea Nitrogen 16 mg/dL (7-17); Carbon Dioxide 20 mmol/L (22-30); Chloride 110 mmol/L (98-107); Estimated CRCL calculation 70 ml/min; Estimated Glomerular Filt Rate 53; Glucose 108 mg/dL (65-110); Magnesium 1.8 mg/dL (1.6-2.3); Potassium 3.5 mmol/L (3.4-5.0); Sodium 138 mmol/L (137-145)
[2020-11-29 07:16] LABS: Anisocytosis 1+ (NORMAL); Ovalocytes 1+ (NORMAL); Platelet Estimate Decreased (Adequate); Tear Drop Cells 1+ (NORMAL)
--- NOTE | 2020-11-29 07:41 | PM.IMPN ---
Progress Note: A&P Assessment and Plan (1) Sepsis: Code(s): A41.9 - Sepsis, unspecified organism Status: Inactive Assessment and Plan: Urosepsis Likely secondary to left pyelonephritis, related to obstructive uropathy with mild hydronephrosis. Patient is post op day 2 cystoscopy with left retrograde pyelogram and stent placement. Large lower pole staghorn calculus was identified; purulent material was recovered from stent. CT evidence of punctuate calcific material within the proximal left ureter consistent with obstructing stone. Patient was appropriately started on cefepime that we will continue. Repeat lactate has improved from 2.8 to 1.4. The leukocytosis has improved from 16.4 to 12.4. Creatinine is improving slowly toward baseline. Plan for lithotrypsy as an outpatient. Discharge tomorrow on oral antibiotics. (2) Kidney stone: Code(s): N20.0 - Calculus of kidney Status: Inactive Assessment and Plan: Obstructive uropathy with mild hydronephrosis. Scheduled for percutaneous nephrolithotomy as an outpatient given large stone burden. (3) Hydronephrosis, left: Code(s): N13.30 - Unspecified hydronephrosis Status: Acute Assessment and Plan: Secondary to staghorn calculus. Medical management of pyelonephritis and s/p drain placement pn 11/27/2020. Plan for lithotripsy for definitive management. (4) Pyelonephritis: Code(s): N12 - Tubulo-interstitial nephritis, not specified as acute or chronic Status: Acute (5) Humerus fracture: Code(s): S42.309A - Unspecified fracture of shaft of humerus, unspecified arm, initial encounter for closed fracture Status: Acute Assessment and Plan: Curently asymptomatic. (6) Acute kidney injury: Code(s): N17.9 - Acute kidney failure, unspecified Status: Acute Assessment and Plan: Recovering acute kidney injury. Creatinine has improved from 1.2 to 1.2. Patient has made over 1.4 liters of urine overnight. Monitor I and Os. Avoid nephrotoxic medications. Additional Plan DVT prophylaxis Lovenox Subjective Date/time seen: 11/29/20 07:41 S: PAtient is examined at the bedside. She has not been OOBC; she is feeling a lot better. Review of Systems Review of Systems: All systems reviewed & are unremarkable except as noted in HPI and below Constitutional: Constitutional: Reports no additional constitutional complaints Eyes: Eyes: Reports no additional eye complaints ENT: Reports system reviewed and no additional complaints, except as documented Cardiovascular: Cardiovascular: Reports no additional cardiovascular complaints Respiratory: Respiratory: Reports no additional respiratory complaints Gastrointestinal: Gastrointestinal: Reports no additional gastrointestinal complaints Genitourinary: Genitourinary: Reports no additional female genitourinary complaints Musculoskeletal: Musculoskeletal: Reports no additional musculoskeletal complaints Integumentary/Breasts: Skin/Breast: Reports system reviewed and no additional complaints, except as docu Neurologic: Reports system reviewed and no additional complaints, except as documented Psychiatric: Psychiatric: Reports no additional psychiatric complaints Exam Narrative: GENERAL: The patient is well developed, in mild distress HEENT: Nonicteric sclerae, PERRLA, EOMI. Oropharynx clear. Dry mucous membranes. Conjunctivae appear well perfused. CHEST: Chest wall is nontender. HEART: Regular rate and rhythm without murmur, rubs, or gallops LUNGS: Clear to auscultation bilaterally. no respiratory distress ABDOMEN: Soft, positive bowel sounds, tender left upper quadrant and left renal angle, no organomegaly. SKIN: No rash, no excessive bruising, petechiae, or purpura. NEUROLOGIC: Cranial nerves II-XII intact, alert and oriented x 3, no gross motor deficits EXTREMITIES: no edema, cyanosis or clubbing Const: General: cooperative, awake and ill appearin
[2020-11-29] MEDS: MORPHINE SULFATE (*CRX) 2 MG/ML INJ IV PUSH (08:35)
[2020-11-29] MEDS: ENOXAPARIN 40 MG/0.4 ML SYRINGE SUB-Q (08:48)
[2020-11-29] MEDS: DOCUSATE SODIUM 100 MG CAPSULE PO ×2 (08:48→20:04)
[2020-11-29] MEDS: FAMOTIDINE 20 MG/2 ML VIAL IV PUSH ×2 (08:48→20:04)
[2020-11-29] MEDS: MAGNESIUM OXIDE 200 MG TABLET PO ×2 (08:49→20:04)
[2020-11-29] MEDS: MONTELUKAST SODIUM 10 MG TABLET PO (08:49)
[2020-11-29] MEDS: SIMETHICONE 125 MG CHEW TAB PO (08:59)
[2020-11-30] VITALS (8 sets, daily range): BP systolic 138–149; BP diastolic 87–98; PULSE 69–83; RESP 19–22; TEMP 36.1–37; O2SAT 94–97
[2020-11-30] MEDS: oxyCODONE/ACETAMINOPHEN (*CRX) 5-325 MG TABLET PO (04:20)
--- NOTE | 2020-11-30 04:31 | PC.NURSE ---
RN got 110.5kg with bed scale this AM. I didn't chart it because it is a significant difference from what was previously charted into computer by another RN/ GEOSPATIAL IMAGE ANALYST.
[2020-11-30] MEDS: SODIUM CHLORIDE 0.9% IV 1,000 ML 150 ML IV CONT (05:29)
[2020-11-30 06:42] LABS: Basophils Absolute Auto 0.1 K/mm3 (0.0-0.1); Basophils Percent Auto 0.8 % (0.2-1.2); Eosinophils Absolute Auto 0.1 K/mm3 (0-0.3); Eosinophils Percent Auto 0.8 % (0-4.4); Hematocrit 27.3 % (37.0-47.0); Hemoglobin 9.2 g/dL (12.0-15.0); Immature Granulocyte Absolute 0.14 K/mm3 (0.00-0.031); Immature Granulocyte Percent A 1.1 % (0-0.5); Lymphocytes Absolute Auto 1.17 K/mm3 (0.9-3.2); Lymphocytes Percent Auto 9.2 % (18.3-44.2); Mean Corpuscular HGB Conc 33.7 g/dl (32-36); Mean Corpuscular Hemoglobin 30.2 pg (26-34); Mean Corpuscular Volume 89.5 fl (80-100); Mean Platelet Volume 11.4 fl (7.4-10.4); Monocytes Absolute Auto 1.2 K/mm3 (0.1-0.6); Monocytes Percent Auto 9.6 % (2.6-8.5); Neutrophils Percent Auto 78.5 % (45.5-73.1); Platelet Count Result 161 k/mm3 (150-375); Red Blood Count 3.05 M/mm3 (4.2-5.4); Red Cell Distribution Width 15.9 % (11.5-14.5); White Blood Count 12.7 K/mm3 (4.5-10.0)
[2020-11-30 07:00] LABS: Anion Gap 6 mmol/L (8-16); Blood Urea Nitrogen 10 mg/dL (7-17); Calcium 7.9 mg/dL (8.4-10.2); Carbon Dioxide 20 mmol/L (22-30); Chloride 109 mmol/L (98-107); Estimated CRCL calculation 85 ml/min; Estimated Glomerular Filt Rate > 60; Glucose 118 mg/dL (65-110); Potassium 3.1 mmol/L (3.4-5.0); Sodium 135 mmol/L (137-145)
[2020-11-30] MEDS: ENOXAPARIN 40 MG/0.4 ML SYRINGE SUB-Q (08:56)
[2020-11-30] MEDS: MONTELUKAST SODIUM 10 MG TABLET PO (08:57)
[2020-11-30] MEDS: DOCUSATE SODIUM 100 MG CAPSULE PO (08:57)
[2020-11-30] MEDS: FAMOTIDINE 20 MG/2 ML VIAL IV PUSH (08:57)
[2020-11-30] MEDS: MAGNESIUM OXIDE 200 MG TABLET PO (08:57)
[2020-11-30] MEDS: SIMETHICONE 125 MG CHEW TAB PO (08:57)
[2020-11-30] MEDS: polyethylene glycoL 3350 17 GM POWD.PACK PO (08:58)
--- NOTE | 2020-11-30 10:24 | PM.DS ---
DS: Admitting Diagnosis Discharge Date 11/30/2020 Admitting Diagnosis Left pyelonephritis Left obstructive uropathy DS: Discharge Diagnosis Discharge Diagnosis (1) Sepsis: Code(s): A41.9 - Sepsis, unspecified organism Status: Inactive Assessment and Plan: Urosepsis Likely secondary to left pyelonephritis, related to obstructive uropathy with mild hydronephrosis. Patient underwent cystoscopy with left retrograde pyelogram and stent placement on 11/27/2020. Large lower pole staghorn calculus was identified; purulent material was recovered from stent. CT evidence of punctuate calcific material within the proximal left ureter consistent with obstructing stone. Patient was appropriately started on cefepime that we will continue. Repeat lactate has improved from 2.8 to 1.4. The leukocytosis has improved from 16.4 to 12.4. Creatinine is improving slowly toward baseline. Plan for lithotrypsy as an outpatient. Discharge tomorrow on oral antibiotics. (2) Kidney stone: Code(s): N20.0 - Calculus of kidney Status: Inactive Assessment and Plan: Obstructive uropathy with mild hydronephrosis. Scheduled for percutaneous nephrolithotomy as an outpatient given large stone burden. (3) Hydronephrosis, left: Code(s): N13.30 - Unspecified hydronephrosis Status: Acute Assessment and Plan: Secondary to staghorn calculus. Medical management of pyelonephritis and s/p drain placement pn 11/27/2020. Plan for lithotripsy for definitive management. (4) Pyelonephritis: Code(s): N12 - Tubulo-interstitial nephritis, not specified as acute or chronic Status: Acute (5) Humerus fracture: Code(s): S42.309A - Unspecified fracture of shaft of humerus, unspecified arm, initial encounter for closed fracture Status: Acute Assessment and Plan: Curently asymptomatic. (6) Acute kidney injury: Code(s): N17.9 - Acute kidney failure, unspecified Status: Acute Assessment and Plan: Recovered acute kidney injury. Creatinine has improved from 1.2 to 1.2. Patient has made over 1.4 liters of urine overnight. Monitor I and Os. Avoid nephrotoxic medications. DS: Summary Hospital Course Hospital Course: This is a 50F with a PMH of recent shoulder surgery in July 2020 after a fall injury presents with feeling ill since past few days. She reports that she was having chills and body aches 2 days prior to presentation along with fever. She also reported pain in her abdomen more on the left side of the right. She denied any urinary complaints with no burning her frequency of urination. She was evaluated initially for COVID which came back negative. Further investigation showed elevated white cell count at 21,000 8 and positive urinalysis punctate calcific material within the proximal left ureter consistent with obstructing U stones along with mild left hydronephrosis. Abnormal enhancement of the left kidney with perinephric fat stranding. Multiple cortical cysts. Regions of decreased perfusion within the medial left kidney which could potentially represent pyelonephritis in the appropriate clinical setting. Lungs were clear with no pleural effusion or pneumothorax. She was noted to be septic with tachycardia and febrile on presentation she got 3 L of fluids in the [facility] ER. She is transferred to our hospital for further evaluation and management. She was diagnosed with a left staghorn renal calculus. There is a hint of a tiny calculus in the left proximal ureter without hydroureter. The bulk of the stone is in the renal pelvis and left lower pole of the kidney. There appears to be a fluid collection distal to the staghorn calculus. She was treated with IV cefepime. The patient has developed tachycardia and has become more hypotensive in the afternoon of 11/27/2020. She underwent a retrograde pyelogram and a stent placement to decompress the collecting system. After that procedure, she improve
--- NOTE | 2020-11-30 13:43 | PC.NURSE ---
Percocet 5-325mg 2-tablets po given at 1205 prior to patient discharge. Unable to chart in MAR due to discharge status. Patient was complaining of pain level of 5, generalized muscular pain.
== END 2020-11-30 12:10 | disposition home or self-care (01) | DRG 720 ==
LOC: ANHIMU 20:59 → ANHCPC 11-28 12:49 → ANHIMU 12-06 08:03
PROVIDERS: Internal Medicine; Urology; Admitting Provider Internal Medicine; PCP Family Medicine; Visit Provider Internal Medicine
PROC: BT1FYZZ Fluoroscopy of Left Kidney, Ureter and Bladder using Other Contrast (ICD-10-PCS; CPT 52352; principal; 2020-11-27 21:00)
DX: A41.9 Sepsis, unspecified organism (principal); N13.6 Pyonephrosis; F12.90 Cannabis use, unspecified, uncomplicated; N17.9 Acute kidney failure, unspecified; E66.9 Obesity, unspecified; Z68.32 Body mass index [BMI] 32.0-32.9, adult
CPT/HCPCS: 36415; 74018; 80048; 80053; 83605; 83735; 85025; 85055; 87040; A9270; C1758; C1769; C2617; J0131; J0692; J1650; J2060; J2250; J2270; J2405; J3480; J7030; J7120; Q9966

== ENCOUNTER 2023-03-02 15:29 | Emergency (ER) | payer OTHER, SELFPAY ==
--- NOTE | ~2023-03-02 | XR_ITS ---
EXAMINATION: XR chest 2V Exam Date/Time: 03/02/2023 16:16 PROCESS SAFETY SPECIALIST HISTORY: increased sob, cough, congestion, wheezing x few days Comparison: PA with abdomen pelvis 11/27/2020. RESULT: Lines, tubes, and devices: Partially visualized, but uncomplicated appearing left proximal humeral h ardware. Lungs and pleura: Clear. Cardiomediastinal silhouette: Stable. Other: No acute osseous or upper abdominal finding. IMPRESSION: No acute cardiopulmonary process. Reviewed, dictated and finalized at location K. ESS SAFETY SPECIALIST
[2023-03-02 15:30] VITALS: BP 137/66; PULSE 84; RESP 20; TEMP 36.4; O2SAT 95
[2023-03-02 15:40] VITALS: O2SAT 95
--- NOTE | 2023-03-02 16:21 | ED.GENADULT ---
HPI - General Adult General Chief complaint: Upper Respiratory Infection Stated complaint: cough wheezing Time Seen by Provider: 03/02/23 15:31 Source: patient Mode of arrival: ambulatory Limitations: no limitations History of Present Illness HPI narrative: Patient is a 52-year-old female with cough and congestion for the past few days. Earlier last month she went to the urgent care and got antibiotics and steroids which helped resolve the similar problem. She is concerned with COVID at this time. She is concerned with pneumonia at this time. patient has baseline asthma. Onset (ago): day(s) (4) Location: chest Radiation: non-radiation Severity: moderate Pain Consistency: constant Relieving factors: none Exacerbating factors: none Associated symptoms: denies other symptoms Treatments prior to arrival: other ( Albuterol inhaler helps) Related Data Home Medications Medication Instructions Recorded Confirmed montelukast 10 mg tablet 10 mg PO DAILY 11/26/20 03/02/23 (Singulair) albuterol sulfate 90 mcg/actuation 2 puff inhalation Q4H PRN Wheezing 03/02/23 03/02/23 aerosol inhaler Allergies Allergy/AdvReac Type Severity Reaction Status Date / Time No Known Allergies Allergy Verified 03/02/23 15:31 Review of Systems Review of Systems: All systems reviewed & are unremarkable except as noted in HPI and below Constitutional: Constitutional: Reports no additional constitutional complaints Eyes: Eyes: Reports no additional eye complaints ENT: Reports system reviewed and no additional complaints, except as documented Cardiovascular: Cardiovascular: Reports no additional cardiovascular complaints Respiratory: Respiratory: Reports no additional respiratory complaints Gastrointestinal: Gastrointestinal: Reports no additional gastrointestinal complaints Genitourinary: Genitourinary: Reports no additional female genitourinary complaints Musculoskeletal: Musculoskeletal: Reports no additional musculoskeletal complaints Integumentary/Breasts: Skin/Breast: Reports system reviewed and no additional complaints, except as docu Neurologic: Reports system reviewed and no additional complaints, except as documented Psychiatric: Psychiatric: Reports no additional psychiatric complaints Endocrine: Endocrine: Reports no additional endocrine complaints Hematologic/Lymphatic: Hematologic/Lymphatic: Reports no additional hematologic/lymphatic complaints Allergic/Immunologic: Allergic/Immunologic: Reports no additional allergic/immunologic complaints PMFSH Past Medical History Medical History Hydronephrosis, left Kidney stone Obesity Sepsis Family History Family History Mother Pancreatic cancer Father Hypothyroidism Social History Social History Smoking status: Never smoker Second hand tobacco smoke exposure: No Drinks per week: 12 Substance use: current Substance use type: marijuana Last use: 11/23/20 Spiritual care concerns: No Exam Const: General: healthy appearing Nutritional Appearance: well nourished Orientation/consciousness: patient oriented x3 HENMT: Head: normal to inspection Ears: external ears normal Face/Nose/Sinus: Normal external nose present Eyes: Conjunctivae: conjunctivae normal Pupils: Equal, round and reactive pupils present EOM: EOMs intact bilaterally Neck: Neck: normal visual inspection Chest: Chest palpation & inspection: normal inspection of the chest Resp: Effort & Inspection: normal respiratory effort, not labored and no retractions Auscultation: clear to auscultation bilaterally, no crackles, no rales, no rhonchi and no wheezes Other: Bilateral bronchial sounds mildly Cardio: Rate: regular rate Rhythm: regular rhythm Heart sounds: no murmurs GI: Inspection: non-distended G
[2023-03-02 16:34] LABS: SARS-CoV-2 RNA PCR Negative (Negative)
[2023-03-02 16:36] LABS: Influenza A QL RT-PCR Negative (Negative); Influenza B QL RT-PCR Negative (Negative); RSV RNA, RT-PCR Negative (Negative)
[2023-03-02 16:50] VITALS: BP 132/73; PULSE 72; RESP 18; O2SAT 95
[2023-03-02] MEDS: AZITHROMYCIN 250 MG TABLET 500 MG PO (17:00)
[2023-03-02] MEDS: predniSONE 20 MG TABLET 40 MG PO (17:01)
== END 2023-03-02 17:08 | disposition home or self-care (01) ==
PROVIDERS: Emergency Provider Emergency Medicine; PCP Hospitalist
DX: J40 Bronchitis, not specified as acute or chronic (principal); J45.21 Mild intermittent asthma with (acute) exacerbation; Z20.822 Contact with and (suspected) exposure to COVID-19
CPT/HCPCS: 71046; 87637; 99283; A9270; J7512

== ENCOUNTER 2024-05-10 21:32 | Observation (INO) | payer OTHER, SELFPAY ==
--- NOTE | ~2024-05-10 | CT_ITS ---
CT of the Abdomen and Pelvis: Indication: Abdominal pain Technique: 2.5 mm axial scans were obtained through the abdomen and pelvis following intravenous adm inistration of 100 cc of Omnipaque 350. Dose reduction technique was used on this scan by utilizing a utomated exposure control and iterative reconstruction technique. The dose-length product (DLP) was 1 219.82 mGy-cm. COMPARISON: 11/27/2020 Findings: Scans through the lung bases are unremarkable. There is a 2.8 x 1.8 cm hypodense mass at the posterior margin of the upper right hepatic lobe (axial image 31), similar to prior exam. The spleen, pancreas, gallbladder, and adrenal glands are within n ormal limits. Small right lower pole nonobstructing stones measuring up to 2-3 mm. There are coarse c alcifications in her nonobstructing stones at the left lower pole left lower pole calyceal dilatation versus cyst with peripheral wall calcification. No other hydronephrosis. No ureteral stones. No evid ence of aortic aneurysm. No lymphadenopathy. No bowel obstruction or bowel wall thickening. There is no evidence to suggest acute appendicitis. Images through the pelvis were performed. Urinary bladder unremarkable. No pelvic mass seen. No ascit es. Impression: Small nonobstructing renal stones. Left lower pole renal stones with lower pole calyceal dilatation versus left lower pole cyst with per ipheral calcification. No ureteral stone or hydronephrosis on either side. 2.8 x 1.8 cm hypodense hepatic mass, likely hemangioma, stable from prior exam. Reviewed, dictated and finalized at [facility]. Impression: Small nonobstructing renal stones. Left lower pole renal stones with lower pole calyceal dilatation versus left lo wer pole cyst with peripheral calcification. No ureteral stone or hydronephrosis on either side. 2.8 x 1.8 cm hypodense hepatic mass, likely hemangioma, stable from prior exam.
--- OUTSIDE RECORDS SUMMARY | 2024-05-10 21:34 | XMS_ITS | Clinical Summary ---
Author Organization [facility] Address [facility] [place] [address] Care Team Providers Care Rhia Name Role Phone Min Gimenez MD Primary Care Provider [phone] Family History Medical History Relation Comments Pancreas Disease Mother Relation Status Comments Mother Social History Tobacco Use Types Packs/Day Years Used Date Smoking Tobacco: Never Assessed Comments Unknown Sex and Gender Information Value Date Recorded Sex Assigned at Not on file Legal Sex Female 7:08 PM CDT Gender Identity Not on file Sexual Orientation Not on file Plan of Treatment Health Maintenance Due Date Last Done Comments Cervical Cancer Screening Pa p Smear (Age 30 to 64) Every 3 Years 1972 Colorectal Cancer Screening Colonoscopy (10 Years) 1972 Annual Physical 1975 Hepatitis C 1990 DTaP, Tdap and Td Vaccines ( 1 - Tdap) 1991 Hepatitis B Vaccines (1 of 3 - 19+ 3-dose series) 1991 Cervical Cancer Screening Pa p with HPV Testing (Age 30 to 64) Every 5 Years 2002 Cervical Cancer Screening with HPV 2002 Mammogram Screening 07/16/2021 07/17/2019 Zoster Vaccines (1 of 2) 2022 COVID-19 Vaccine (2023-2 5 season) 2023 Influenza Adult (#1) 2023 Meningococcal B Vaccine Aged Out No l onger eligible based on patient's age to complete this topic Meningococcal Vaccine Aged Out No janessa nabila eligible based on patient's age to complete this topic Pneumococcal Vaccine: Pediat rics (0 to 5 Years) and At-Risk Patients (6 to 64 Years) Aged Out No longer eligi ble based on patient's age to complete this topic RSV Immunizations Under 20 Months Aged Out No longer eligible based on patient's age to complete this topic Procedures Procedure Name Priority Date/Time Associated Diagnosis Comments MG SCREENING W GILBERT KADIE DIGI Routine 07/17/2019 1:39 PM CDT Visit for screening mammogram from Last 3 Months or Most Recently Relevant to Health Maintenance Results * MG SCREENING W GILBERT KADIE DIGI (07/17/2019 1:39 PM CDT) Anatomical Region Laterality Modality Breast Bilateral Mammography 07/17/2019 3:06 PM CDT Impressions 07/17/2019 3:07 PM CDT IMPRESSION: No suspicious change since the previous exams. Recommendation: 1: Routine screening mammogram Bilateral in 1 Year Assessment: ACR BI-RADS Category 2 - Benign. Interpreted By: Herson Naylor, 07/17/2019 3:06 PM Narrative 07/17/2019 3:07 PM CDT Examination: Digital screening mammogram with CAD. Clinical history: Asymptomatic patient presents for routine screening. Comparison: 11/27/2016, 10/08/2013. Technique: Bilateral digital mammograms. The exam was interpreted with the use of a computer-aided detection (CAD) system. Additional 3-D tomosynthesis images were acquired. Tissue density: The breast tissue contains scattered fibroglandular densities. Findings: The breast tissue contains scattered fibroglandular densities. Benign-appearing calcification noted. No suspicious mass, microcalcification or area of architectural distortion can be identified. From a mammographic standpoint, routine followup in one year would seem adequate. Katiuska Salmeron Akbar [facility] MAMMO Final Re sult from Last 3 Months or Most Recently Relevant to Health Maintenance Insurance Care Teams Rhia Relationship Specialty Start Date End Date Min Gimenez MD [address] [place] [phone] PCP - General FAMILY PRACTICE 07/17/19
--- OUTSIDE RECORDS SUMMARY | 2024-05-10 21:34 | XMS_ITS | Encounter Summary ---
Author Organization [facility] Address [facility] [place] [address] Care Team Providers Care Closer On Name Role Phone Min Gimenez MD Primary Care Provider [phone] Encounter Details Date Type Department Care Team (Late st Contact Info) Description 08/09/2018 Abstract SFL CONVERSION [address] [place] [address] , Generic Conversion, Social History Tobacco Use Types Packs/Day Years Used Date Smoking Tobacco: Never Assessed Comments Unknown Sex and Gender Information Value Date Recorded Sex Assigned at Not on file Legal Sex Female 7:08 PM CDT Gender Identity Not on file Sexual Orientation Not on file documented as of this encounter Plan of Treatment Not on file documented as of this encounter Visit Diagnoses Not on filedocumented in this encounter Care Teams Closer On Relationship Specialty Start Date End Date Min Gimenez MD [address] [place] [phone] PCP - General FAMILY PRACTICE 07/17/19 documented as of this encounter
--- OUTSIDE RECORDS SUMMARY | 2024-05-10 21:34 | XMS_ITS | Referral Summary ---
Author Organization [facility] Address [address] [place] [address] Care Team Providers Care Pipe Cutter Name Role Phone Unavailable Primary Care Provider Unavailabl e Source Comments [facility],non-owned Affiliates and Associated Physician Practices is amultiple site organization consisting of ambulatory clinics and hospital sitesin [place], [place], [place] and [place]. This disclosure is being madepursuant to the Care Everywhere program and may not contain all information available regarding this patient. Last updated 17.[facility] [employer] Social History Tobacco Use Types Packs/Day Years Used Date Smoking Tobacco: Never Assessed Sex and Gender Information Value Date Recorded Sex Assigned at Not on file Gender Identity Not on file Sexual Orientation Not on file Plan of Treatment Not on file
--- OUTSIDE RECORDS SUMMARY | 2024-05-10 21:34 | XMS_ITS | Clinical Summary ---
Author Organization [facility] Address [address] [place] [address] Phone Care Team Providers Care Pulling Unit Floorhand Name Role Phone Emeka Delgado MD Primary Care Provider [phone] Treasure Colvin MD Unavailable [phone] Allergies No known active allergies Medications montelukast (SINGULAIR) 10 MG Tablet Take 10 mg by mouth every evening. Active cetirizine (ZyrTEC) 10 MG Tablet Take 10 mg by mouth daily. Active pantoprazole (PROTONIX) 40 MG Tablet Delayed Response Take 40 mg by mouth daily. Active LORazepam (ATIVAN) 0.5 MG Tablet Take 0.5 mg by mouth every 8 hours as needed for Anxiety. Active HYDROcodone-nenita taminophen (NORCO) 5-325 MG TabletIndicatio ns:Renal abscess, right Take 1 Tablet by mouth every 6 hours as needed for Moderate or more severe pain. 20 Tablet 3 Active naloxone HCl (Narcan) 4 MG/0.1ML Liquid 1 [place] by Nasal route as needed (opioid overdose). administer for symptoms of overdose (severe sleepiness, breathing problems, not responsive). Call 911. May use additional dose to repeat 1 spray intranasally in 2-3 minutes if needed. 2 Each 3 Active Active Problems Problem Noted Date Diagnosed Date Bilateral nephrolithiasis 04/19/2022 Asymptomatic bacteriuria 04/19/2022 Anemia 04/19/2022 Thrombocytosis 04/19/2022 Elevated lactic acid level 04/19/2022 GERD (gastroesophageal reflux disease) Renal abscess, right 04/18/2022 Family History Medical History Relation Name Comments No Known Problems Father No Known Problems Mother Relation Name Status Comments Father Mother Social History Tobacco Use Types Packs/Day Years Used Date Smoking Tobacco: Never Smokeless Tobacco: Never Tobacco Cessation:Counseling Given: Not Answered Alcohol Use Standard Drinks/Week Comments Yes 6 (1 standard drink = 0.6 oz pur e alcohol) Sexually Active Control Partners Comments Yes Comments No Sex and Gender Information Value Date Recorded Sex Assigned at Not on file Legal Sex Female 5:35 PM CALENDER OPERATOR Gender Identity Not on file Sexual Orientation Not on file Last Filed Vital Signs Vital Sign Reading Time Taken Comments Blood Pressure 132/88 05/08/2022 9:14 AM CALENDER OPERATOR Pulse 99 05/08/2022 9:14 AM CALENDER OPERATOR Temperature 36.4 C (97.6 F) 05/08/2022 9:14 AM CALENDER OPERATOR Respiratory Rate 20 05/08/2022 9:14 AM CALENDER OPERATOR Oxygen Saturation 97% 05/08/2022 9:14 AM CALENDER OPERATOR Inhaled Oxygen Concentration - - Weight 104.3 kg (230 lb) 08/03/2022 2:34 PM CDT Height 177.8 cm (5' 10 ) 08/03/2022 2:34 PM CDT Body Mass Index 33 08/03/2022 2:34 PM CDT Plan of Treatment Health Maintenance Due Date Last Done Comments Hepatitis C Virus (HCV) Screening 1972 TdaP Immunization 1972 Hepatitis B Immunization (1 of 3 - 19+ 3-dose series) 1991 Pap Smear 1993 Cervical Cancer Screening (CCS) 2002 HPV/Cotest 2002 Colonoscopy 2017 Colorectal Cancer Screening 2017 Cologuard 2022 Immunochemical Fecal Occult Blood 2022 Pneumococcal Immunization (5 0+ years) (1 of 1 - PCV) 2022 Zoster Immunization (1 of 2) 2022 Mammogram 04/16/2023 04/16/2022, 07/17/2019, 07/17/2019 Influenza Immunization (#1) 2023 10/0 06/2020, 04/22/2019 SARS-COV-2 Immunization ( season) 2023 Respiratory Syncytial Virus (RSV) Immunization (Adult) (1 - 1-dose 75+ series) 2047 Meningococcal Immunization (ACWY) Aged Out No longer eligible b ased on patient's age to complete this topic Pneumococcal Immunization Combined Aged Out No longer eligible b ased on patient's age to complete this topic Rotavirus Immunization Aged Out No lo nger eligible based on patient's age to complete this topic Insurance MEDICAID [employer] Advance Directives * Full Code (Latest Code Status on File) Date Activated Date Inactivated Comments 04/18/2022 11:42 PM 04/21/2022 3:46 PM CPR-Full Tr eatment: FULL ARREST: Attempt Resuscitation/CPR wit intubation and mechanical ventilation. PRE-ARREST: Use entire range of life support measures to stabilize the patient. Care Teams Pulling Unit Floorhand Relationship Specialty Start Date End Date Emeka Delgado MD [address] [place] [address] PCP - General Family Medicine 04/18/22 Treasure Colvin MD [address] [facility], [address] [address] Consulting Physician Urology 04/24/22
--- OUTSIDE RECORDS SUMMARY | 2024-05-10 21:34 | XMS_ITS | Clinical Summary ---
Author Organization [facility] [email or web address] Address [address] [place] [address] Care Team Providers Care Floor Worker Well Service Name Role Phone Unavailable Primary Care Provider Unavailabl e Source Comments [facility] [email or web address],non-owned Affiliates and Associated Physician Practices is amultiple site organization consisting of ambulatory clinics and hospital sitesin [place], [place], [place] and [place]. This disclosure is being madepursuant to the Care Everywhere program and may not contain all information available regarding this patient. Last updated 17.[facility] [email or web address] Social History Tobacco Use Types Packs/Day Years Used Date Smoking Tobacco: Never Assessed Sex and Gender Information Value Date Recorded Sex Assigned at Not on file Gender Identity Not on file Sexual Orientation Not on file Plan of Treatment Health Maintenance Due Date Last Done Comments COLOGUARD (AGES 45-75) - COL ON CA SCREENING 1972 COLON MONITORING 1972 COLONOSCOPY - COLON CA SCREENING 1972 CT COLONOGRAPHY - COLON CA SCREENING 1972 Colorectal Cancer Screening 1972 FIT - COLON CA SCREENING 1972 FLEX SIG - COLON CA SCREENING 1972 LIPID TESTING 1972 MAMMOGRAM 1972 PAP SMEAR 1972 HIV SCREENING 1987 HEPATITIS C SCREENING 03/21/1990 DTAP/TDAP/TD VACCINES (1 - Tdap) 1991 HEPATITIS B VACCINE (1 of 3 - 19+ 3-dose series) 1991 PNEUMOCOCCAL VACCINE 50+ (1 of 1 - PCV) 2022 ZOSTER VACCINE (1 of 2) 2022 COVID-19 VACCINE (1 - 2023-2 5 season) 2023 INFLUENZA VACCINE (#1) 2023 DEPRESSION SCREENING 03/04/2024 HIB VACCINE Aged Out No longer eligi ble based on patient's age to complete this topic HPV VACCINE Aged Out No longer eligi ble based on patient's age to complete this topic MENINGOCOCCAL (Group B) VACCINE Aged Out No longer eligible based on patient's age to complete this topic MENINGOCOCCAL VACCINE Aged Out No janessa nabila eligible based on patient's age to complete this topic PNEUMOCOCCAL VACCINE Aged Out No long er eligible based on patient's age to complete this topic
--- OUTSIDE RECORDS SUMMARY | 2024-05-10 21:34 | XMS_ITS | Patient Health Summary ---
Author Organization [facility] Address [address] [place] [address] Care Team Providers Care Boom Stick Man Name Role Phone Unavailable Primary Care Provider Unavailabl e Note from [facility],non-owned Affiliates and Associated Physician Practices is amultiple site organization consisting of ambulatory clinics and hospital sitesin [place], [place], [place] and [place]. This disclosure is being madepursuant to the Care Everywhere program and may not contain all information available regarding this patient. Last updated 17.[facility] Social History Tobacco Use Types Packs/Day Years Used Date Smoking Tobacco: Never Assessed Sex and Gender Information Value Date Recorded Sex Assigned at Not on file Gender Identity Not on file Sexual Orientation Not on file
[2024-05-10 21:39] VITALS: BP 127/89; PULSE 103; RESP 20; TEMP 36.8; O2SAT 99
--- NOTE | 2024-05-10 21:40 | ED_ITS ---
HPI - General Adult General Chief complaint: Urogenital-Female Stated complaint: UTI Time Seen by Provider: 05/10/24 21:33 History of Present Illness HPI narrative: Amanda is a 54F with a PMH of obesity, and previous episodes of pyelonephritis that progressed to sepsis that presented to the ED with urinary frequency. She thought she was dehydrated so she drank a lot of water but now feels very bloated and goes to the bathroom every few minutes. No fevers, flank pain, hematuria or suprapubic pain. She is very worked up. 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 Related Data Home Medications ?Medication ?Instructions ?Recorded ?Confirmed ?Last Taken ?Type cetirizine 10 mg tablet 10 mg PO DAILY 05/11/24 05/11/24 Unknown History lorazepam 0.5 mg tablet 0.5 mg PO PRN anxiety 05/11/24 05/11/24 Unknown History metformin 500 mg tablet,extended 500 mg PO DAILY 05/11/24 05/11/24 Unknown History release 24 hr montelukast 10 mg tablet 10 mg PO DAILY 05/11/24 05/11/24 Unknown History phentermine 15 mg capsule 15 mg PO DAILY 05/11/24 05/11/24 Unknown History tramadol 50 mg tablet 50 mg PO PRN 05/11/24 05/11/24 Unknown History Allergies Allergy/AdvReac Type Severity Reaction Status Date / Time No Known Allergies Allergy Verified 03/02/23 15:31 Review of Systems 2 Review of Systems: All systems reviewed & are unremarkable except as noted in HPI and below PMFSH Past Medical History Medical History Obesity Hydronephrosis, left Kidney stone Sepsis Family History Family History Mother Pancreatic cancer Father Hypothyroidism Social History Social History Smoking status: Never smoker Second hand tobacco smoke exposure: No Alcohol intake: current Drinks per week: 3 Substance use: current Substance use type: marijuana Last use: 05/11/2024 Do You Feel Safe in your Home?: Yes Lack of Transportation: No Lack of Food: Sometimes True Current Housing: I Have Housing Concerned About Future Housing: No Difficulty Paying Gas/Electric Bills: No Difficulty Paying for Meds: No Currently Unemployed: No Education: High School Diploma/GED Difficulty w/ Childcare or Family Care: No Spiritual care concerns: No Exam 2 Const: General: cooperative, healthy appearing, comfortable, no acute distress, well developed, alert, awake and Physically active O rientation/consciousness: oriented to person, oriented to place and oriented to time HENMT: Head: normal to inspection, normocephalic and atraumatic Ears: h earing grossly normal bilaterally and external ears normal Face/Nose/Sinus: N ormal external nose present Eyes: General: appearance normal, both eyes and all related structures P eriorbital: periorbital findings normal Sclera: sclerae normal Pupils: E qual, round and reactive pupils present Neck: Neck: normal visual inspection Chest: Chest palpation & inspection: normal inspection of the chest Resp: Effort & Inspection: normal respiratory effort, able to speak in complete sentences and no respiratory distress Auscultation: clear to auscultation bilaterally Cardio: Jugular venous distension: no JVD Rate: regular rate Rhythm: r egular rhythm GI: Inspection: normal to inspection GI Palp: Yes Soft to palpation A uscultation: normal bowel sounds Skin: General skin exam: normal color and no rashes or lesions noted Neuro: General: oriented to person, oriented to place and oriented to time Cranial nerves: Yes Equal, round and reactive pupils present Extrem: General: normal to inspection Course Course Emergency Course: Ordered labs, UA and ativan to help with anxiety Labs showed leukocytosis at 15.3, mild hypokalemia and moderate hypomagnesemia and a slight CRISTIAN. UA c/w infection. Ordered potassium, magnesium and ceftriaxone as well as CT. Impression -possible cystitis -no obstructing urolithiasis -bilateral renal nonobstructing stones -distended stomach Given her history of progression to sepsis from UTI, elevated initial pulse and leukocytosis, and possible stones will admit for IV antibiotics and observation Vital Signs Vital signs: Vital Signs Temperature 98.2 F 05/10/24 21:39 Pulse Rate 103 H 05/10/24 21:39 Respiratory Rate 20 05/10/24 21:39 Blood Pressure 127/89 05/10/24 21:39 Pulse Oximetry 99 05/10/24 21:39 Oxygen Delivery Room Air 05/10/24 21:39 Temperature 98.2 F 05/10/24 21:39 Pulse Rate 82 05/10/24 23:25 Respiratory Rate 18 05/10/24 23:25 Blood Pressure 124/62 05/10/24 23:25 Pulse Oximetry 96 05/10/24 23:25 Oxygen Delivery Room Air 05/10/24 23:25 Medical Decision Making Vital Signs Vital Signs: Vital Signs Temperature 98.2 F 05/10/24 21:39 Pulse Rate 103 H 05/10/24 21:39 Respiratory Rate 20 05/10/24 21:39 Blood Pressure 127/89 05/10/24 21:39 Pulse Oximetry 99 05/10/24 21:39 Oxygen Delivery Room Air 05/10/24 21:39 Temperature 98.2 F 05/10/24 21:39 Pulse Rate 82 05/10/24 23:25 Respiratory Rate 18 05/10/24 23:25 Blood Pressure 124/62 05/10/24 23:25 Pulse Oximetry 96 05/10/24 23:25 Oxygen Delivery Room Air 05/10/24 23:25 Lab Data 05/10/24 22:15 05/10/24 22:15 Labs: Lab Results 05/10/24 Range/Units 22:15 WBC 15.3 H (4.8-10.8) K/mm3 RBC 4.35 (4.20-5.40) M/mm3 Hgb 13.0 (12.0-15.0) g/dL Hct 38.9 (35.0-49.0) % MCV 89.4 (78.0-102.0) fL MCH 29.9 (27.0-31.0) pg MCHC 33.4 (32-36) g/dL RDW 13.2 (11.6-14.4) % Plt Count 347 (150-420) K/mm3 MPV 10.3 (9.2-11.8) fl Immature Gran % (Auto) 0.5 H (0.0-0.0) % Neut % (Auto) 81.8 H (50.0-70.0) % Lymph % (Auto) 9.7 L (18.0-42.0) % [place] % (Auto) 5.1 (2.0-11.0) % Eos % (Auto) 2.4 (1.0-6.0) % Baso % (Auto) 0.5 (0.0-1.0) % Lymph # (Auto) 1.48 (1.10-4.50) K/mm3 [place] # (Auto) 0.78 (0.10-0.90) K/mm3 Eos # (Auto) 0.36 (0.02-0.50) K/mm3 Baso # (Auto) 0.07 (0.00-0.10) K/mm3 Abs Immat Gran (auto) 0.07 H (0.00-0.00) K/mm3 Absolute Neuts (auto) 12.49 H (1.70-7.20) K/mm3 Absolute Nucleated RBC 0.00 (0.00-0.00) K/mm3 Nucleated RBC % 0.0 (0-0.0) % Sodium 143 (136-145) mmol/L Potassium 3.3 L (3.5-5.1) mmol/L Chloride 104 (98-108) mmol/L Carbon Dioxide 30 (21-32) mmol/L Anion Gap 9 (4-12) mmol/L BUN 22 H (7-18) mg/dL Creatinine 1.41 H (0.55-1.02) mg/dL Estim Creat Clear Calc 56 ml/min Estimated GFR 39 L (59 - ) Glucose 128 H (70-99) mg/dL Calculated Osmolality 301 H (285-295) mOsm/kg Lactic Acid 1.3 (0.4-2.0) mmol/L Calcium 8.8 (8.5-10.1) mg/dL Magnesium 1.5 L (1.8-2.4) mg/dL Total Bilirubin 0.7 (0.00-1.00) mg/dL AST 16 (15-37) U/L ALT 18 (14-59) U/L Alkaline Phosphatase 122 H (46-116) U/L Total Protein 7.1 (6.4-8.2) g/dL Albumin 3.9 (3.4-5.0) g/dL Lipase 31 (16-77) U/L Urine Color Dark yellow (Yellow) Urine Appearance Cloudy A (Clear) Urine pH 7.0 (5.0-8.0) Ur Specific [place] 1.010 (1.010-1.020) Urine Protein 2+ H (Negative) Urine Glucose (UA) Trace H (Negative) Urine Ketones Trace H (Negative) Ur Blood (Man) 3+ H (Negative) Urine Nitrate Positive H (Negative) Urine Bilirubin Negative (Negative) Urine Urobilinogen 4.0 H (0.2-1.0) mg/dL Leukocyte Esterase Rfl 3+ H (Negative) GEOVANI/UL Urine RBC >75 H (0-2) /hpf Urine WBC >75 H (0-3) /hpf Urine WBC Clumps Present H (None) /hpf Ur Squamous Epith Cells Many H (Few) /hpf Amorphous Sediment Heavy H (None) Urine Bacteria 2+ H (None) /hpf Discharge Plan Discharge Clinical Impression: UTI (urinary tract infection) Patient Disposition: [facility] Care [facility] Condition: Serious Patient Language: Austrian Prescriptions: No Action cetirizine 10 mg tablet 10 mg PO DAILY metformin 500 mg tablet extended release 24 hr 500 mg PO DAILY montelukast 10 mg tablet 10 mg PO DAILY phentermine 15 mg capsule 15 mg PO DAILY lorazepam 0.5 mg tablet 0.5 mg PO PRN tramadol 50 mg tablet 50 mg PO PRN Follow-up/Referrals: Sandy,MD Emeka [Primary Care Provider] -
--- NOTE | 2024-05-10 21:43 | PC.NURSE ---
Called Negar in lab to tell her labs needed in Rm 2, Urine was taken down for testing appprox 5 min before calling about need for blood draw.
[2024-05-10] MEDS: LORazepam (*CRX) 0.5 MG TABLET PO (21:54)
--- OUTSIDE RECORDS SUMMARY | 2024-05-10 22:03 | XMS_ITS | Encounter Summary ---
Author Organization [facility] Address [facility] [place] [address] Care Team Providers Care Printing Sign Machine Operator Name Role Phone Min Gimenez MD Primary Care Provider Encounter Details Date Type Department Care Team (Late st Contact Info) Description 08/09/2018 Abstract SFL CONVERSION [address] [place] [address] , Generic Conversion, Social History Tobacco Use [...] on filedocumented in this encounter Care Teams Printing Sign Machine Operator Relationship Specialty Start Date End Date Min Gimenez MD [address] [place] [phone] PCP - General FAMILY PRACTICE 07/17/19 documented as of this encounter
--- OUTSIDE RECORDS SUMMARY | 2024-05-10 22:04 | XMS_ITS | Referral Summary ---
Author Organization [facility] Address [address] [facility] [place] [address] Care Team Providers Care Instructional Technology Director Name Role Phone Unavailable Primary Care Provider Unavailabl e Source Comments [facility],non-owned Affiliates and Associated Physician Practices is amultiple site organization consisting of ambulatory clinics and hospital sitesin [place], [place], [place] and [place]. This disclosure is being madepursuant to the Care Everywhere program and may not contain all information available regarding this patient. Last updated 17.[facility] [employer] Social History Tobacco Use Types Packs/Day Years Used Date Smoking Tobacco: Never Assessed Sex and Gender Information Value Date Recorded Sex Assigned at Not on file Gender Identity Not on file Sexual Orientation Not on file Plan of Treatment Not on file
--- OUTSIDE RECORDS SUMMARY | 2024-05-10 22:04 | XMS_ITS | Patient Health Summary ---
Author Organization [facility] Address [address] [facility] [place] [address] Care Team Providers Care Sheep Or Calf Grader Name Role Phone Unavailable Primary Care Provider Unavailabl e Note from [facility],non-owned Affiliates and Associated Physician Practices is amultiple site organization consisting of ambulatory clinics and hospital sitesin [place], [place], [place] and [place]. This disclosure is being madepursuant to the Care Everywhere program and may not contain all information available regarding this patient. Last updated 17.[facility] Social History Tobacco Use Types Packs/Day Years Used Date Smoking Tobacco: Never Assessed Sex and Gender Information Value Date Recorded Sex Assigned at Not on file Gender Identity Not on file Sexual Orientation Not on file
--- OUTSIDE RECORDS SUMMARY | 2024-05-10 22:04 | XMS_ITS | Clinical Summary ---
Author Organization [facility] Address [address] [place] [address] Phone Care Team Providers Care Landscape Architect And Planner Name Role Phone Emeka Delgado MD Primary Care Provider [phone] Treasure Colvin MD Unavailable [phone] Allergies No known active allergies Medications [...] naloxone HCl (Narcan) 4 MG/0.1ML Liquid 1 [place] by Nasal route as needed (opioid overdose). [...] on file Legal Sex Female 5:35 PM RESIDENT CARE DIRECTOR Gender Identity Not on file Sexual Orientation Not on file Last Filed Vital Signs Vital Sign Reading Time Taken Comments Blood Pressure 132/88 05/08/2022 9:14 AM RESIDENT CARE DIRECTOR Pulse 99 05/08/2022 9:14 AM RESIDENT CARE DIRECTOR Temperature 36.4 C (97.6 F) 05/08/2022 9:14 AM RESIDENT CARE DIRECTOR Respiratory Rate 20 05/08/2022 9:14 AM RESIDENT CARE DIRECTOR Oxygen Saturation 97% 05/08/2022 9:14 AM RESIDENT CARE DIRECTOR Inhaled Oxygen Concentration - - Weight 104.3 [...] measures to stabilize the patient. Care Teams Landscape Architect And Planner Relationship Specialty Start Date End Date Emkea Delgado MD [address] [place] [address] PCP - General Family Medicine 04/18/22 Treasure Colvin MD [address] [facility], [address] [address] Consulting Physician Urology 04/24/22
--- OUTSIDE RECORDS SUMMARY | 2024-05-10 22:04 | XMS_ITS | Clinical Summary ---
Author Organization [facility] Address [facility] [place] [address] Care Team Providers Care Hostage Negotiator Name Role Phone Min Gimenez MD Primary Care Provider [phone] Family History Medical History Relation Comments Pancreas [...] year would seem adequate. Katiuska Salmeron Akbar [facility] Final Re sult from Last 3 Months or Most Recently Relevant to Health Maintenance Insurance Care Teams Hostage Negotiator Relationship Specialty Start Date End Date Min Gimenez MD [address] [place] [phone] PCP - General FAMILY PRACTICE 07/17/19
--- OUTSIDE RECORDS SUMMARY | 2024-05-10 22:04 | XMS_ITS | Clinical Summary ---
Author Organization [address] Address [address] tevin [facility] [place] [address] Care Team Providers Care Sandblast Or Shotblast Equipment Tender Name Role Phone Emeka Moreira MD Primary Care Provider [phone] Reginald Sauceda Unavailable [phone] Allergies No known active allergies Medications naloxone (NARCAN) 4 mg/actuation spray,non-aeroso l 023 Active cyclobenzaprine (FLEXERIL) 10 mg tablet Take 1 tablet (10 mg total) by mouth 3 (three) times a day as needed for muscle spasms for muscle spasms 90 tablet 023 Active Additional Information Patient not taking.Reported on 06/26/2023 venlafaxine XR (EFFEXOR-XR) 75 mg 24 hr capsule TAKE 1 CAPSULE(75 MG) BY MOUTH DAILY WITH FOOD 30 capsule 1 023 Active Additional Information Patient not taking.Reported on 06/26/2023 fluconazole (DIFLUCAN) 150 mg tabletIndication s:Antibiotic-ind uced yeast infection Take one tab now. Repeat in 7 days if symptoms persist. 2 tablet 023 Active Additional Information Patient not taking.Reported on 06/26/2023 ipratropium-albu teroL (DUO-NEB) 0.5-2.5 mg/3 mL nebulizer solutionIndicati ons:Chronic Obstructive Pulmonary Disease with Bronchospasms Take 3 mL by nebulization 4 (four) times a day as needed for wheezing or shortness of breath 90 mL 11 Active Additional Information Patient not taking.Reported on 06/26/2023 omeprazole (PriLOSEC) 40 mg capsule Take 1 capsule (40 mg total) by mouth daily 90 capsule 3 Active metFORMIN XR (GLUCOPHAGE XR) 500 mg 24 hr tablet Take 1 tablet (500 mg total) by mouth 2 (two) times a day with meals 180 tablet 3 Active albuterol HFA (PROVENTIL HFA,VENTOLIN HFA,PROAIR HFA) 90 mcg/actuation inhalerIndicatio ns:Bacterial URI INHALE 2 PUFFS BY MOUTH EVERY 4 HOURS NEEDED FOR WHEEZING 18 g Active fluticasone propionate (FLONASE) 50 mcg/actuation nasal sprayIndications :Seasonal allergies Administer 2 sprays into each nostril daily 3 each 4 Active mometasone-formo terol (DULERA 200) 200-5 mcg/actuation inhaler Inhale 2 puffs 2 (two) times a day Rinse mouth with water after use. Do not swallow. 1 each 11 024 2024 Active cetirizine (ZyrTEC) 10 mg tablet TAKE 1 TABLET BY MOUTH DAILY 90 tablet 3 Active phentermine 15 mg capsule TAKE 1 CAPSULE(15 MG) BY MOUTH EVERY MORNING 30 capsule 025 2024 Active montelukast (SINGULAIR) 10 mg tabletIndication s:Seasonal allergies TAKE 1 TABLET(10 MG) BY MOUTH EVERY NIGHT 90 tablet Active traMADoL (ULTRAM) 50 mg tablet TAKE 1 TABLET(50 MG) BY MOUTH EVERY 8 HOURS NEEDED FOR PAIN 28 tablet Active azelastine (ASTELIN) 137 mcg (0.1 %) nasal sprayIndications :Seasonal allergies USE 1 SPRAY IN EACH NOSTRIL TWICE DAILY DIRECTED 30 mL Active LORazepam (ATIVAN) 0.5 mg tablet TAKE 1 TABLET(0.5 MG) BY MOUTH THREE TIMES DAILY NEEDED FOR ANXIETY 30 tablet Active montelukast (SINGULAIR) 10 mg tabletIndication s:Maintenance Therapy for Asthma Take 1 tablet (10 mg total) by mouth nightly 90 tablet 3 024 2024 Discontinued clindamycin-trudy oyl peroxide (BENZACLIN) gel Apply topically 2 (two) times a day 25 g 024 2024 azelastine (ASTELIN) 137 mcg (0.1 %) nasal sprayIndications :Seasonal allergies Administer 1 spray into each nostril 2 (two) times a day Use in each nostril as directed 30 mL 1 024 2024 Discontinued LORazepam (ATIVAN) 0.5 mg tablet TAKE 1 TABLET(0.5 MG) BY MOUTH THREE TIMES DAILY NEEDED FOR ANXIETY 30 tablet 025 2024 Discontinued traMADoL (ULTRAM) 50 mg tablet TAKE 1 TABLET(50 MG) BY MOUTH EVERY 8 HOURS NEEDED FOR PAIN 28 tablet 025 2024 Discontinued phentermine 15 mg capsule TAKE 1 CAPSULE(15 MG) BY MOUTH EVERY MORNING 30 capsule 025 2024 Discontinued Hospital, Clinic, or Other Facility Administered Medication Ordered Dose Route Frequency Start Date End Date Status ipratropium-albuteroL (DUO-NEB) 0.5-2.5 mg/3 mL nebulizer solution 3 mLIndications:Chronic Obstructive Pulmonary Disease with Bronchospasms 3 mL nebu 4 times daily (news correspondent) 03/08/2023 Active Active Problems Problem Noted Date Diagnosed Date COPD with exacerbation 06/22/2023 Assessment & Plan (06/22/2023 6:10 PM CDT): - continue Symbicort, Nighat p.r.n. - Medrol Dosepak Acute bronchitis with chroni c obstructive pulmonary disease (COPD) 06/22/2023 Assessment & Plan (06/22/2023 6:10 PM CDT): - call for worsening or unresolved symptoms Acute rhinosinusitis 06/22/2023 Seasonal allergies 06/22/2023 Bronchitis with wheezing 03/08/2023 Assessment & Plan (04/11/2023 1:07 PM HEALTH AND SAFETY MANAGER): Has never smoked cigarettes in the past, has been exposed to tobacco during her entire life Patient reports over the last 6-7 years has been having exacerbations and falls; recently breathing has become acutely worse Encouraged patient to use Symbicort nightly Patient to follow-up with pulmonology Assessment & Plan (03/08/2023 5:10 PM HEALTH AND SAFETY MANAGER): Treated with atypical coverage twice, script sent for cefpodoxime. Recently started on effexor. DDX includes persistent lower respiratory tract infection (no systemic symptoms at this time, non-productive cough), exacerbation of underlying asthma d/t viral etiology vs drug-induced eosinophilic pneumonia. If no improvement in next couple of days, consider chest CT. Given progression of symptoms over the past couple of months, consider pulmonary referral. Hot flushes, perimenopausal 07/19/2022 Assessment & Plan (07/19/2022 4:37 PM CDT): Patient reports having significant symptoms regarding to hot flashes; concerns regarding working outdoor walking Will start venlafaxine 75 mg daily Change in consistency of stool 07/19/2022 Assessment & Plan (07/19/2022 4:39 PM CDT): Patient reports recent changes in bowel movements, change in color odor and noted softer stools No abdominal pain cramping, no fevers or chills Encouraged patient to eat high-fiber diet in order to help improve stool consistency Chronic bilateral low back pain without sciatica 07/19/2022 Assessment & Plan (04/11/2023 1:06 PM HEALTH AND SAFETY MANAGER): Stable, well controlled; patient reports generally improving; patient works on feet all day; uses tramadol p.r.n. for severe pain; continue tramadol 50 mg p.r.n. Assessment & Plan (07/19/2022 4:40 PM CDT): Patient has notable back pain; worsening standing for long durations Physical exam, has tenderness bilaterally at level L5 proximally 4-5 cm from midline; unclear if related to SI verses paraspinal inflammation Encouraged continued exercise, work on weight loss Low back exercises Anemia 04/19/2022 Asymptomatic bacteriuria 04/19/2022 Bilateral nephrolithiasis 04/19/2022 Assessment & Plan (07/19/2022 4:39 PM CDT): Not well controlled, continues to have some mild symptoms, follows up with Urology and repeat MRI scheduled for resolution of abscess well as evaluate status of renal stones Assessment & Plan (05/04/2022 9:39 AM HEALTH AND SAFETY MANAGER): 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; improved with rest, worsened with activity Discussed with patient may still continue to have some inflammatory symptoms, may also have abscess still present; pending CT from yesterday; no read at this time Follow-up with Urology for further management Elevated lactic acid level 04/19/2022 Thrombocytosis 04/19/2022 Gastroesophageal reflux disease without esophagi tis 02/20/2022 Assessment & Plan (04/11/2023 1:06 PM HEALTH AND SAFETY MANAGER): Symptoms worse at night; has not been able to take pantoprazole due to lack of insurance coverage Change to omeprazole 40 mg daily Assessment & Plan (02/07/2023 2:04 PM HEALTH AND SAFETY MANAGER): Stable, generally well controlled; continue pantoprazole 40 mg daily Assessment & Plan (05/04/2022 9:40 AM HEALTH AND SAFETY MANAGER): Not well controlled; had severe episode of heartburn yesterday; patient is not currently taking PPI as she is on antibiotics Has completed course of antibiotics Continue pantoprazole 40 mg daily Patient had concerns regarding potential gallbladder disease; reviewed CT imaging with her that demonstrated no radiopaque stones and no biliary dilation at that time demonstrating low concern for cholelithiasis Assessment & Plan (02/20/2022 1:28 PM HEALTH AND SAFETY MANAGER): Not well controlled; has been worsening with weigh gain Continue pantoprazole 40 mg daily Nephrolithiasis 02/21/2021 Assessment & Plan (02/21/2021 5:50 PM HEALTH AND SAFETY MANAGER): Stable, improving; had infection secondary to renal stone, continue on antibiotics at this time Will continue to monitor Mild episode of recurrent major depressive disor ayala 02/21/2021 Assessment & Plan (04/11/2023 1:06 PM HEALTH AND SAFETY MANAGER): Stable, well controlled; no major depression at this time; GERD is well controlled; continue lorazepam 0.5 mg p.r.n.; venlafaxine 75 mg daily Assessment & Plan (07/19/2022 4:38 PM CDT): Generally well controlled, has multiple stressors, including daughter leaving for college Patient reports good relief, taking lorazepam 0.5 mg p.r.n. at night for sleep initiation Given perimenopausal symptoms, will start venlafaxine 75 mg daily Assessment & Plan (02/20/2022 1:29 PM HEALTH AND SAFETY MANAGER): Has been having worsening symptoms of anxiety; symptoms not present daily; but can occur up to 2 times per week -gets emotional, develops hives -start lorazepam 0.5 mg prn Assessment & Plan (02/21/2021 5:50 PM HEALTH AND SAFETY MANAGER): Patient has multiple stressors, difficulty sleep Will start venlafaxine 75 mg today Encounter for screening mammogram for breast can cer 01/10/2021 Assessment & Plan (01/10/2021 2:41 PM HEALTH AND SAFETY MANAGER): Order placed by pcp 07/2020, given number to call to schedule. Continue monthly SBE. Encounter for well woman tracee m with routine gynecological exam 01/10/2021 Assessment & Plan (01/10/2021 2:41 PM HEALTH AND SAFETY MANAGER): WWE: pap & breast exam completed today. Will call w/pap results when received. Instructed in SBE. to perform monthly in shower; preferably after menses. Aware that she may have some blood tinged discharge with wiping today after pap. Encounter for colorectal cancer screening 2020 Assessment & Plan (01/10/2021 2:40 PM HEALTH AND SAFETY MANAGER): Has kit at home, aware to call if no results are received within 2 weeks of kit submission. Class 2 obesity due to exces s calories without serious comorbidity with body mass index (BMI) of 36.0 to 36.9 in adult 01/10/2021 Assessment & Plan (04/11/2023 1:05 PM HEALTH AND SAFETY MANAGER): Not well controlled, mild increase in weight over the past 6 months; patient reports no relief with phentermine; difficulty with weight due to [place] birthday and family visiting which increased caloric intake; patient reports increased appetite Patient plans to work to improve over the next few months; continue phentermine 15 mg daily, start metformin 500 mg daily Assessment & Plan (02/07/2023 2:04 PM HEALTH AND SAFETY MANAGER): Not well controlled; continues to have weight gain; has episodes of stress eating; working with boyfriend to work on dietary changes; phentermine 15 mg daily for appetite suppression Assessment & Plan (07/19/2022 4:38 PM CDT): Not well controlled, patient continues to have weight gain; patient reports she is physically active at work, walking on feet most of the day; has ability to improved diet Encourage dietary changes, continued regular physical activity Assessment & Plan (02/20/2022 1:30 PM HEALTH AND SAFETY MANAGER): Not well controlled; worsening; has been having weight gain due to holidays and stress eating Encourage limiting high calorie days to just holiday; continue to focus on limiting portions Assessment & Plan (01/10/2021 6:25 PM HEALTH AND SAFETY MANAGER): Discussed healthy diet and importance of regular physical activity. Closed fracture of left proximal humerus 021 Overview (08/05/2020): Added automatically from request for surgery [id number] Fracture of humeral head, closed, left, sequela 07/27/2020 Encounters Date Type Department Care Team Description 03/05/2024 Telephone [facility] [address] [address] Emeka Moreira MD Additional Services Or Orders from Last 3 Months Immunizations Immunization Administration Dates Next Due Influenza, Quadrivalent, Spl it, Preservative Free, Intramuscular 12/05/2020,04/22/2019 Influenza, Unspecified 01/17/2023(Deferr ed: Patient Refused),07/19/2022(Deferred: Patient Refused),05/04/2022(Deferred: Patient Refused),04/26/2022(Deferred: Patient Refused),04/26/2022(Deferred: Patient Refused),02/02/2022(Deferred: Patient Refused),11/02/2021(Deferred: Patient Refused),11/02/2021(Deferred: Patient Refused),11/02/2021(Deferred: Patient Refused),11/02/2021(Deferred: Patient Refused),12/02/2020(Deferred: Patient Refused),03/04/2020(Deferred: Patient Refused),03/04/2019(Deferred: Patient Refused) Surgical History Surgery Date Site/Laterality Comments SHOULDER SURGERY KIDNEY STONE SURGERY Medical History Medical History Date Comments Asthma Seasonal allergies COPD (chronic obstructive pulmonary disease) (HC C) Family History Medical History Relation Name Comments No Known Problems Daughter No Known Problems Father Cancer Mother pancreatic No Known Problems Sister Relation Name Status Comments Daughter Alive Father Alive Mother (Age 54) Sister Alive Social History Tobacco Use Types Packs/Day Years Used Date Smoking Tobacco: Never Smokeless Tobacco: Never Tobacco Cessation:Counseling Given: Not Answered Alcohol Use Standard Drinks/Week Comments Never 0 (1 standard drink = 0.6 oz pur e alcohol) AUDIT-C Answer Date Recorded Q1: How often do you have a drink containing alc ohol? 2-4 times a month 05/04/2022 Q2: How many drinks containi ng alcohol do you have on a typical day when you are drinking? 1 or 2 05/04/2022 Frequency of Binge Drinking Not on file 05/2022 PHQ-2 Answer Date Recorded PHQ-2 Total Score (If total score is 3 or more points, staff should administer the PHQ-9) 0 04/11/2023 Comments No Sex and Gender Information Value Date Recorded Sex Assigned at Not on file Legal Sex Female 3:20 PM HEALTH AND SAFETY MANAGER Gender Identity Female 09/26/2023 9:37 PM CDT Sexual Orientation Not on file Obstetrics History Para Term AB IAB SAB Ectopic Multiple Livin g Live Births 4 1 1 Date Outcome GA Total Labor Labor/2nd/3rd Weight Sex Type Anes PTL Yusra A1 A5 Name Clin Term Last Filed Vital Signs Vital Sign Reading Time Taken Comments Blood Pressure 120/60 06/26/2023 9:09 AM CDT Pulse 85 06/26/2023 9:09 AM CDT Temperature 35.6 C (96 F) 06/26/2023 9:09 AM CDT Respiratory Rate 16 06/26/2023 9:09 AM CDT Oxygen Saturation 95% 06/26/2023 9:09 AM CDT Inhaled Oxygen Concentration - - Weight 109.5 kg (241 lb 8 oz) 06/26/2023 9:09 AM CDT Height 177.8 cm (5' 10 ) 06/26/2023 9:09 AM CDT Body Mass Index 34.65 06/26/2023 9:09 AM CDT Plan of Treatment Health Maintenance Due Date Last Done Comments Hepatitis C Screening 1972 DTaP/Tdap/Td Vaccine (1 - Tdap) 1983 Hepatitis B Screening 1990 Pneumococcal vaccine <65 (1 of 2 - PCV) 1991 Regular Well Visit/Exam 18-64 07/27/2021 07/27/2020 Cervical Cancer Screening 01/10/2022 01/10/2021 Zoster Vaccine (1 of 2) 2022 Breast Cancer Screening-Mammogram 04/16/2023 023 Influenza Vaccine (#1) 2023 12/05/2020, 2019 Depression Screening 04/11/2024 04/11/2023, 01/17/2023, 07/19/2022, Additional history exists Colon Cancer Screening-DNA Stool 04/19/2026 04/19/19 24 Medical Devices Implanted Type Area [employer] Scout Device Identifier Shelf Expiration Date Model / Serial / Lot Synthes 204.830 3.5mm 6mm 30mm 2.5mm Self Tap Small Hexagonal Socket Low Profile - [id number] Implanted:Qty: 1 on 08/08/2020 by Clarence Torres MD at [facility] Left: Humerus Synthes I 204.830 / / Synthes 241.901 Lcp Combi Philos [id number] 3 Hole Shaft Lock Compression - [id number] Implanted:Qty: 1 on 08/08/2020 by Clarence Torres MD at [facility] Left: Humerus Synthes I 241.901 / / Synthes 212.117 3.5mm 2.9mm 40mm Self Tap Lock Stardrive Conical Head T15 Full - [id number] Implanted:Qty: 3 on 08/08/2020 by Clarence Torres MD at [facility] Left: Humerus Synthes I 212.117 / / Synthes 212.119 3.5mm 2.9mm 45mm Self Tap Lock Stardrive Conical Head T15 Full - [id number] Implanted:Qty: 2 on 08/08/2020 by Clarence Torres MD at [facility] Left: Humerus Synthes I 212.119 / / Synthes 212.121 3.5mm 2.9mm 50mm Self Tap Lock Stardrive Conical Head T15 Full - [id number] Implanted:Qty: 2 on 08/08/2020 by Clarence Torres MD at [facility] Left: Humerus Synthes I 212.121 / / Synthes 212.109 3.5mm 2.9mm 26mm Self Tap Lock Stardrive Conical Head T15 Full - [id number] Implanted:Qty: 2 on 08/08/2020 by Clarence Torres MD at [facility] Left: Humerus Synthes I 212.109 / / Explanted Type Area [employer] Scout Device Identifier Shelf Expiration Date Model / Serial / Lot Synthes 212.108 3.5mm 2.9mm 24mm Self Tap Lock Stardrive Conical Head Pelvis T15 - [id number] Explanted:Qty: 1 on 08/08/2020 by Clarence Torres MD at [facility] Left: Humerus Synthes I 212.108 / / Procedures Procedure Name Priority Date/Time Associated Diagnosis Comments STOOL DNA COLOGUARD Routine 04/19/2023 10:00 AM HEALTH AND SAFETY MANAGER Colon cancer screening SCREENING MAMMOGRAM BILATERAL W ARMAAN Schedule Routine, Read Routine (OP Routine) 04/16/2022 3:23 PM HEALTH AND SAFETY MANAGER Encounter for screening mammogram for breast cancer PAP WITH REFLEX TO HIGH RISK HPV Routine 01/10/2021 10:51 AM HEALTH AND SAFETY MANAGER from Last 3 Months or Most Recently Relevant to Health Maintenance Results * Stool DNA - Cologuard (04/19/2023 10:00 AM HEALTH AND SAFETY MANAGER) Stool DNA - Cologuard Negative Negative [facility] (CLIA #:[id number]) Comment: NEGATIVE TEST RESULT. A negative Cologuard result indicates a low likelihood that a colorectal cancer (CRC) or advanced adenoma (adenomatous polyps with more advanced pre-malignant features) is present. The chance that a person with a negative Cologuard test has a colorectal cancer is less than 1 in 1500 (negative predictive value >99.9%) or has an advanced adenoma is less than 5.3% (negative predictive value 94.7%). These data are based on a prospective cross-sectional study of 10,000 individuals at average risk for colorectal cancer who were screened with both Cologuard and colonoscopy. (Lenard Devine et al, N Engl J Med 2014;370(14):0960-4648) The normal value (reference range) for this assay is negative. COLOGUARD RE-SCREENING RECOMMENDATION: Periodic colorectal cancer screening is an important part of preventive healthcare for asymptomatic individuals at average risk for colorectal cancer. Following a negative Cologuard result, the [place] [employer] and U.S. Multi-Society Task Force screening guidelines recommend a Cologuard re-screening interval of 3 years. References: [place] [employer] Guideline for Colorectal Cancer Screening: https://www.cancer.org/cancer/ncwsd-smnhdn-zrkckw/szarmukin-wmfwhlbgt-zkwspho/ac s-rec ommendations.html.; Darwin CORNEJO, Raad MITCHELL, Abdi VILLA, Colorectal Cancer Screening: Recommendations for Physicians and Patients from the U.S. Multi-Society Task Force on Colorectal Cancer Screening , Am J Gastroenterology 2017; 112:1049-2223. TEST DESCRIPTION: Composite algorithmic analysis of stool DNA-biomarkers with hemoglobin immunoassay. Quantitative values of individual biomarkers are not reportable and are not associated with individual biomarker result reference ranges. Cologuard is intended for colorectal cancer screening of adults of either sex, 45 years or older, who are at average-risk for colorectal cancer (CRC). Cologuard has been approved for use by the U.S. FDA. The performance of Cologuard was established in a cross sectional study of average-risk adults aged 50-84. Cologuard performance in patients ages 45 to 49 years was estimated by sub-group analysis of near-age groups. Colonoscopies performed for a positive result may find as the most clinically significant lesion: colorectal cancer [4.0%], advanced adenoma (including sessile serrated polyps greater than or equal to 1cm diameter) [20%] or non- advanced adenoma [31%]; or no colorectal neoplasia [45%]. These estimates are derived from a prospective cross-sectional screening study of 10,000 individuals at average risk for colorectal cancer who were screened with both Cologuard and colonoscopy. (Lenard Bloom al, N Engl J Med 2014;370(14):4593-7492.) Cologuard may produce a false negative or false positive result (no colorectal cancer or precancerous polyp present at colonoscopy follow up). A negative Cologuard test result does not guarantee the absence of CRC or advanced adenoma (pre-cancer). The current Cologuard screening interval is every 3 years. ([place] [employer] and U.S. Multi-Society Task Force). Cologuard performance data in a 10,000 patient pivotal study using colonoscopy as the reference method can be accessed at the following location: www.FabZat/results. Additional description of the Cologuard test process, warnings and precautions can be found at www.Poll Everywhererd.com. Stool 04/19/2023 10:0 0 AM HEALTH AND SAFETY MANAGER 04/20/2023 1:13 PM HEALTH AND SAFETY MANAGER us Emeka Moreira MD LAB BODY FLUIDS AND STOOL S ORDERABLES Final Result [facility] (CLIA #:[id number]) [address] [place] [address] * (ABNORMAL) Screening Mammogram Bilateral W Armaan (04/16/2022 3:23 PM HEALTH AND SAFETY MANAGER) Anatomical Region Laterality Modality Breast Bilateral Mammography 05/01/2022 8:27 AM HEALTH AND SAFETY MANAGER Addenda Addendum by Osman Sahu MD on 05/08/2022 5:11 PM HEALTH AND SAFETY MANAGER Prior examinations from 07/17/2019, 11/27/2016, 04/01/2014 and 10/08/2013 have become available for review. The small oval mass central to the nipple on the cc view with equivocal correlate in the upper breast on the MLO view was not definitely present on the prior exam. Diagnostic left breast mammogram with ultrasound is recommended. The small oval mass in the upper right breast has not suspiciously changed since 07/17/2019 and is considered benign, requiring no further follow-up. Recommend screening right breast mammogram in one year. Electronically signed by: Osman Sahu M.D. Impressions 05/01/2022 8:27 AM HEALTH AND SAFETY MANAGER Small bilateral oval masses. Recommend diagnostic bilateral mammogram and ultrasound. BI-RADS: 0 - Additional imaging evaluation is necessary. The patient will be contacted. Electronically signed by: Osman Sahu M.D. Narrative 05/01/2022 8:27 AM HEALTH AND SAFETY MANAGER EXAMINATION: SCREENING MAMMOGRAM BILATERAL W ARMAAN ORDERING HEALTHCARE PROVIDER: EMEKA MOREIRA HISTORY: Routine screening mammography. COMPARISON: None available at the time of interpretation. TECHNIQUE: CC and MLO views of the bilateral breasts were obtained with digital technique using breast tomosynthesis with C view. Computer aided detection was utilized. FINDINGS: DENSITY: There are scattered fibroglandular elements in the bilateral breasts. BREASTS: There is a small oval low-density mass in the upper right breast, just lateral to the posterior nipple line at middle depth. There is a small oval low density mass in the upper left breast at anterior to middle depth . There are no suspicious calcifications in either breast. Procedure Note Osman Sahu MD - 05/02/2022 EXAMINATION: SCREENING MAMMOGRAM BILATERAL W ARMAAN ORDERING HEALTHCARE PROVIDER: EMEKA MOREIRA HISTORY: Routine screening mammography. COMPARISON: None available at the time of interpretation. TECHNIQUE: CC and MLO views of the bilateral breasts were obtained with digital technique using breast tomosynthesis with C view. Computer aided detection was utilized. FINDINGS: DENSITY: There are scattered fibroglandular elements in the bilateral breasts. BREASTS: There is a small oval low-density mass in the upper right breast, just lateral to the posterior nipple line at middle depth. There is a small oval low density mass in the upper left breast at anterior to middle depth . There are no suspicious calcifications in either breast. IMPRESSION: Small bilateral oval masses. Recommend diagnostic bilateral mammogram and ultrasound. BI-RADS: 0 - Additional imaging evaluation is necessary. The patient will be contacted. Electronically signed by: Osman Sahu M.D. us Emeka Moreira MD IMG MAMMO PROCEDURES Edit ed Result - Final * Pap with reflex to High Risk HPV (01/10/2021 10:51 AM HEALTH AND SAFETY MANAGER) Pap test 01/10/2021 10:5 1 AM HEALTH AND SAFETY MANAGER 01/11/2021 10:51 AM HEALTH AND SAFETY MANAGER Narrative 01/13/2021 3:00 PM HEALTH AND SAFETY MANAGER [facility] Department of Pathology [address] [place] [id number] Final Report with Addendum Note to Patients: This report may contain a detailed description of human tissue sent by a health care provider to the laboratory for pathologic evaluation. The content of this report is essential for diagnosis and may provide important critical findings. This information may be unfamiliar to patients to review without a medical professional present. It is advised that the patient review this report in the presence of a health care provider who can answer questions and explain the details. Patient Name: DUC CALVO Address: [address] [place] [address] Gender: F : 1970 (Age: 50) Service: Laboratory Location: Lab [facility] #: [id number] Patient Type: Ref Lab Taken: 01/10/2021 Received: 01/11/2021 Accessioned:: 01/12/2021 Reported: 01/13/2021 Physician(s): Heidy Sanchez, Sharon.N.P. Heidy Sanchez, Sharon.N.P. Diagnosis: Source of Specimen: Imaged Thinprep Pap Test plus HPV - Rehab Physician Cytologic Material Specimen Adequacy: - Specimen satisfactory for interpretation; endocervical/transformation zone component absent or insufficient General Category: - Negative for intraepithelial lesion or malignancy JUSTIN Soares(ASCP) JUSTIN Manning(ASCP) Report Electronically Reviewed and Signed Out By JUSTIN Manning(ASC) 01/13/2021 15:00:50 Addenda: HPV Test Interpretation NEGATIVE for types 16, 18, 31, 33, 35, 39, 45, 51, 52, 56, 58, 59, 66 and 68. Test performed utilizing Gen-Probe Aptima assay. JUSTIN Manning(ASCP) Report Electronically Reviewed and Signed Out By TAMMY ManningASCP) 01/13/2021 13:49:35 Specimen(s) Received: A: Imaged Thinprep Pap Test plus HPV - Rehab Physician Cytologic Material Clinical History: Last Menstrual Period: >1 year Menstrual History: Clinical History: unknown date and results of last Pap The Pap test is a screening test used to aid in the detection of cervical cancer and its precursors. It should not be the sole means by which malignant and premalignant lesions are diagnosed. Both false negative and false positive results may occur. It also has poor sensitivity for the detection of endometrial lesions and should not be used to evaluate suspected endometrial abnormalities. For these reasons it is most important to obtain Pap tests at regular intervals. The performance characteristics of some immunohistochemical stains, fluorescence in-situ hybridization tests and immunophenotyping by flow cytometry cited in this report (if any) were determined by the Surgical Pathology Department at [facility] as part of an ongoing engagement quality consultant program and in compliance with federally mandated regulations drawn from the Clinical Laboratory Improvement Act of 1988 (CLIA '88). Some of these tests rely on the use of analyte specific reagents and are subject to specific labeling requirements by the US Food and Drug Administration. Such diagnostic tests may only be performed in a facility that is certified by the Department of Health and Human Services as a high complexity laboratory under CLIA '88. The FDA has determined that such clearance or approval is not necessary. This test is used for clinical purposes. It should not be regarded as investigational or for research. Nevertheless, federal rules concerning the medical use of analyte specific reagents require that the following disclaimer be attached to the report: This test was developed and its performance characteristics determined by the Surgical Pathology Department [facility]. It has not been cleared or approved by the U. S. Food and Drug Administration. Heidy Priest NP LAB CYTOLOGY ORDERABLES Fin al Result from Last 3 Months or Most Recently Relevant to Health Maintenance Insurance [facility] WORKERS COMPENSATION GENERIC Care Teams Sandblast Or Shotblast Equipment Tender Relationship Specialty Start Date End Date Emeka Moreira MD [address] [place] [address] PCP - General Family Medicine 01/26/20 Reginald Sauceda PA [address] [place] [address] Physician Maintenance Machinist Orthopedic Surgery 08/08/20
--- OUTSIDE RECORDS SUMMARY | 2024-05-10 22:04 | XMS_ITS | Referral Summary ---
Author Organization [facility] [place] [address] [facility] Address [address] [place] [address] Care Team Providers Care Operations Administrator Name Role Phone Emeka Moreira MD Primary Care Provider [phone] Reginald Sauceda PA Unavailable [phone] Encounters Date Type Department Care Team Description 03/05/2024 Telephone [facility] [address] [place] [address] Emeka Moreira MD Additional Services Or Orders from Last 3 Months Allergies No known active allergies Medications naloxone [...] 7 days if symptoms persist. 2 tablet Active Additional Information Patient not taking.Reported on [...] sprays into each nostril daily 3 each Active mometasone-formo terol (DULERA 200) 200-5 mcg/actuation inhaler Inhale 2 puffs 2 (two) times a day Rinse mouth with water after use. Do not swallow. 1 each 024 2024 Active cetirizine (ZyrTEC) 10 mg [...] Bronchospasms 3 mL nebu 4 times daily (broadcast correspondent) 03/08/2023 Active Active Problems Problem Noted [...] 03/08/2023 Assessment & Plan (04/11/2023 1:07 PM BUSINESS MAIL ENTRY CLERK): Has never smoked cigarettes in the past, has been exposed to tobacco during her entire life Patient reports over the last 6-7 years has been having exacerbations and falls; recently breathing has become acutely worse Encouraged patient to use Symbicort nightly Patient to follow-up with pulmonology Assessment & Plan (03/08/2023 5:10 PM BUSINESS MAIL ENTRY CLERK): Treated with atypical coverage twice, script sent [...] 07/19/2022 Assessment & Plan (04/11/2023 1:06 PM BUSINESS MAIL ENTRY CLERK): Stable, well controlled; patient reports generally improving; [...] stones Assessment & Plan (05/04/2022 9:39 AM BUSINESS MAIL ENTRY CLERK): 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; [...] 02/20/2022 Assessment & Plan (04/11/2023 1:06 PM BUSINESS MAIL ENTRY CLERK): Symptoms worse at night; has not been able to take pantoprazole due to lack of insurance coverage Change to omeprazole 40 mg daily Assessment & Plan (02/07/2023 2:04 PM BUSINESS MAIL ENTRY CLERK): Stable, generally well controlled; continue pantoprazole 40 mg daily Assessment & Plan (05/04/2022 9:40 AM BUSINESS MAIL ENTRY CLERK): Not well controlled; had severe episode of [...] cholelithiasis Assessment & Plan (02/20/2022 1:28 PM BUSINESS MAIL ENTRY CLERK): Not well controlled; has been worsening with weigh gain Continue pantoprazole 40 mg daily Nephrolithiasis 02/21/2021 Assessment & Plan (02/21/2021 5:50 PM BUSINESS MAIL ENTRY CLERK): Stable, improving; had infection secondary to renal stone, continue on antibiotics at this time Will continue to monitor Mild episode of recurrent major depressive disor ayala 02/21/2021 Assessment & Plan (04/11/2023 1:06 PM BUSINESS MAIL ENTRY CLERK): Stable, well controlled; no major depression at [...] daily Assessment & Plan (02/20/2022 1:29 PM BUSINESS MAIL ENTRY CLERK): Has been having worsening symptoms of anxiety; symptoms not present daily; but can occur up to 2 times per week -gets emotional, develops hives -start lorazepam 0.5 mg prn Assessment & Plan (02/21/2021 5:50 PM BUSINESS MAIL ENTRY CLERK): Patient has multiple stressors, difficulty sleep Will start venlafaxine 75 mg today Encounter for screening mammogram for breast can cer 01/10/2021 Assessment & Plan (01/10/2021 2:41 PM BUSINESS MAIL ENTRY CLERK): Order placed by pcp 07/2020, given number to call to schedule. Continue monthly SBE. Encounter for well woman tracee m with routine gynecological exam 01/10/2021 Assessment & Plan (01/10/2021 2:41 PM BUSINESS MAIL ENTRY CLERK): WWE: pap & breast exam completed today. Will call w/pap results when received. Instructed in SBE. to perform monthly in shower; preferably after menses. Aware that she may have some blood tinged discharge with wiping today after pap. Encounter for colorectal cancer screening 2020 Assessment & Plan (01/10/2021 2:40 PM BUSINESS MAIL ENTRY CLERK): Has kit at home, aware to call if no results are received within 2 weeks of kit submission. Class 2 obesity due to exces s calories without serious comorbidity with body mass index (BMI) of 36.0 to 36.9 in adult 01/10/2021 Assessment & Plan (04/11/2023 1:05 PM BUSINESS MAIL ENTRY CLERK): Not well controlled, mild increase in weight over the past 6 months; patient reports no relief with phentermine; difficulty with weight due to [place] birthday and family visiting which increased caloric intake; patient reports increased appetite Patient plans to work to improve over the next few months; continue phentermine 15 mg daily, start metformin 500 mg daily Assessment & Plan (02/07/2023 2:04 PM BUSINESS MAIL ENTRY CLERK): Not well controlled; continues to have weight [...] activity Assessment & Plan (02/20/2022 1:30 PM BUSINESS MAIL ENTRY CLERK): Not well controlled; worsening; has been having weight gain due to holidays and stress eating Encourage limiting high calorie days to just holiday; continue to focus on limiting portions Assessment & Plan (01/10/2021 6:25 PM BUSINESS MAIL ENTRY CLERK): Discussed healthy diet and importance of regular physical activity. Closed fracture of left proximal humerus 021 Overview (08/05/2020): Added automatically from request for surgery [id number] Fracture of humeral head, closed, left, sequela 07/27/2020 Immunizations Immunization Administration Dates Next Due Influenza, Quadrivalent, Spl it, Preservative Free, Intramuscular 12/05/2020,04/22/2019 Influenza, Unspecified 01/17/2023(Deferr ed: Patient Refused),07/19/2022(Deferred: Patient Refused),05/04/2022(Deferred: Patient Refused),04/26/2022(Deferred: Patient Refused),04/26/2022(Deferred: Patient Refused),02/02/2022(Deferred: Patient Refused),11/02/2021(Deferred: Patient Refused),11/02/2021(Deferred: Patient Refused),11/02/2021(Deferred: Patient Refused),11/02/2021(Deferred: Patient Refused),12/02/2020(Deferred: Patient Refused),03/04/2020(Deferred: Patient Refused),03/04/2019(Deferred: Patient Refused) Social History Tobacco Use Types Packs/Day Years [...] on file Legal Sex Female 3:20 PM BUSINESS MAIL ENTRY CLERK Gender Identity Female 09/26/2023 9:37 PM CDT Sexual Orientation Not on file Last Filed [...] 06/26/2023 9:09 AM CDT Plan of Treatment Not on file Medical Devices Implanted Type Area Feed Project Engineer Device Identifier Shelf Expiration Date Model / Serial / Lot Synthes 204.830 3.5mm 6mm 30mm 2.5mm Self Tap Small Hexagonal Socket Low Profile - [id number] Implanted:Qty: 1 on 08/08/2020 by Clarence Torres MD at [facility] Left: Humerus Synthes I 204.830 / / Synthes 241.901 Lcp Combi Philos [id number] 3 Hole Shaft Lock Compression - [id number] Implanted:Qty: 1 on 08/08/2020 by Clarence Torres MD at [facility] Left: Humerus Synthes I 241.901 / / Synthes 212.117 3.5mm 2.9mm 40mm Self Tap Lock Stardrive Conical Head T15 Full - [id number] Implanted:Qty: 3 on 08/08/2020 by Clarence Torres MD at [facility] Left: Humerus Synthes I 212.117 / / Synthes 212.119 3.5mm 2.9mm 45mm Self Tap Lock Stardrive Conical Head T15 Full - [id number] Implanted:Qty: 2 on 08/08/2020 by Clarence Torres MD at [facility] Left: Humerus Synthes I 212.119 / / Synthes 212.121 3.5mm 2.9mm 50mm Self Tap Lock St[employer]rive Conical Head T15 Full - [id number] Implanted:Qty: 2 on 08/08/2020 by Clarence Torres MD at [facility] Left: Humerus Synthes I 212.121 / / Synthes 212.109 3.5mm 2.9mm 26mm Self Tap Lock Stardrive Conical Head T15 Full - [id number] Implanted:Qty: 2 on 08/08/2020 by Clarence Torres MD at [facility] Left: Humerus Synthes I 212.109 / / Explanted Type Area Feed Project Engineer Device Identifier Shelf Expiration Date Model / Serial / Lot Synthes 212.108 3.5mm 2.9mm 24mm Self Tap Lock Stardrive Conical Head Pelvis T15 - [id number] Explanted:Qty: 1 on 08/08/2020 by Clarence Torres MD at [facility] Left: Humerus Synthes I 212.108 / / Procedures Procedure Name Priority Date/Time Associated Diagnosis Comments STOOL DNA COLOGUARD Routine 04/19/2023 10:00 AM BUSINESS MAIL ENTRY CLERK Colon cancer screening SCREENING MAMMOGRAM BILATERAL W ARMAAN Schedule Routine, Read Routine (OP Routine) 04/16/2022 3:23 PM BUSINESS MAIL ENTRY CLERK Encounter for screening mammogram for breast cancer PAP WITH REFLEX TO HIGH RISK HPV Routine 01/10/2021 10:51 AM BUSINESS MAIL ENTRY CLERK from Last 3 Months or Most Recently Relevant to Health Maintenance Results * Stool DNA - Cologuard (04/19/2023 10:00 AM BUSINESS MAIL ENTRY CLERK) Stool DNA - Cologuard Negative Negative [employer] (CLIA #:[id number]) Comment: NEGATIVE TEST RESULT. A negative Cologuard [...] (Lenard Bloom al, N Engl J Med 2014;370(14):1242-0771) The normal value (reference range) for this assay is negative. COLOGUARD RE-SCREENING RECOMMENDATION: Periodic colorectal cancer screening is an important part of preventive healthcare for asymptomatic individuals at average risk for colorectal cancer. Following a negative Cologuard result, the [place] Cancer Society and U.S. Multi-Society Task Force screening guidelines recommend a Cologuard re-screening interval of 3 years. References: [place] [employer] Society Guideline for Colorectal Cancer Screening: https://www.cancer.org/cancer/atwsk-bgokqt-mqfmzi/ybgjjfejr-gyhpupzrn-dssngcd/ac s-rec ommendations.html.; Darwin DK, Raad MITCHELL, Abdi LaboyK, Colorectal Cancer Screening: Recommendations for Physicians and Patients from the U.S. Multi-Society Task Force on Colorectal Cancer Screening , Am J Gastroenterology 2017; 112:4646-2224. TEST DESCRIPTION: Composite algorithmic analysis of stool [...] (Lenard Bloom al, N Engl J Med 2014;370(14):5432-2598.) Cologuard may produce a false negative or false positive result (no colorectal cancer or precancerous polyp present at colonoscopy follow up). A negative Cologuard test result does not guarantee the absence of CRC or advanced adenoma (pre-cancer). The current Cologuard screening interval is every 3 years. ([place] Cancer Society and U.S. Multi-Society Task Force). Cologuard performance data in a 10,000 patient pivotal study using colonoscopy as the reference method can be accessed at the following location: www.[facility]/results. Additional description of the Cologuard test process, warnings and precautions can be found at www.cologOrderlordrd.com. Stool 04/19/2023 10:0 0 AM BUSINESS MAIL ENTRY CLERK 04/20/2023 1:13 PM BUSINESS MAIL ENTRY CLERK us Emeka Moreira MD LAB BODY FLUIDS AND STOOL S ORDERABLES Final Result Droplet (CLIA #:[id number]) [address] [place] [address] * (ABNORMAL) Screening Mammogram Bilateral W Armaan (04/16/2022 3:23 PM BUSINESS MAIL ENTRY CLERK) Anatomical Region Laterality Modality Breast Bilateral Mammography 05/01/2022 8:27 AM BUSINESS MAIL ENTRY CLERK Addenda Addendum by Osman Sahu MD on 05/08/2022 5:11 PM BUSINESS MAIL ENTRY CLERK Prior examinations from 07/17/2019, 11/27/2016, 04/01/2014 and [...] Osman Sahu M.D. Impressions 05/01/2022 8:27 AM BUSINESS MAIL ENTRY CLERK Small bilateral oval masses. Recommend diagnostic bilateral mammogram and ultrasound. BI-RADS: 0 - Additional imaging evaluation is necessary. The patient will be contacted. Electronically signed by: Osman Sahu M.D. Narrative 05/01/2022 8:27 AM BUSINESS MAIL ENTRY CLERK EXAMINATION: SCREENING MAMMOGRAM BILATERAL W ARMAAN ORDERING [...] to High Risk HPV (01/10/2021 10:51 AM BUSINESS MAIL ENTRY CLERK) Pap test 01/10/2021 10:5 1 AM BUSINESS MAIL ENTRY CLERK 01/11/2021 10:51 AM BUSINESS MAIL ENTRY CLERK Narrative 01/13/2021 3:00 PM BUSINESS MAIL ENTRY CLERK [facility] Department of Pathology [address] [place] [id number] Final Report with Addendum Note to [...] the details. Patient Name: DUC CALVO Address: [address] [place] [address] Gender: F : 1970 (Age: 50) Service: Laboratory Location: Lab [facility] #: [id number] Patient Type: [facility] Lab Taken: 01/10/2021 Received: 01/11/2021 Accessioned:: 01/12/2021 Reported: 01/13/2021 Physician(s): Sharon Tran.NTanya Sanchez, Sharon.N.PYaneth Diagnosis: Source of Specimen: Imaged Thinprep Pap Test plus HPV - Senior Administrator Support Cytologic Material Specimen Adequacy: - Specimen satisfactory [...] Electronically Reviewed and Signed Out By JUSTIN Manning(ASCP) 01/13/2021 13:49:35 Specimen(s) Received: A: Imaged Thinprep Pap Test plus HPV - Senior Administrator Support Cytologic Material Clinical History: Last Menstrual Period: [...] determined by the Surgical Pathology Department at [facility] as part of an ongoing supplier quality engineering manager program and in compliance with federally mandated [...] characteristics determined by the Surgical Pathology Department [facility]. It has not been cleared or approved by the U. S. Food and Drug Administration. Heidy Priest NP LAB CYTOLOGY ORDERABLES Fin al Result from Last 3 Months or Most Recently Relevant to Health Maintenance Insurance [id number] [place] [address] [facility] [employer] COMPENSATION GENERIC Care Teams Operations Administrator Relationship Specialty Start Date End Date Eme[place] [address] PCP - General Family Medicine 01/26/20 Reginald Sauceda PA [address] [place] [address] Physician Help Desk Specialist Orthopedic Surgery 08/08/20
--- OUTSIDE RECORDS SUMMARY | 2024-05-10 22:04 | XMS_ITS | Clinical Summary ---
Author Organization [facility] Address [address] [place] [address] Care Team Providers Care Systems Support Specialist Name Role Phone Unavailable Primary Care Provider Unavailabl e Source Comments [facility],non-owned Affiliates and Associated Physician Practices is amultiple site organization consisting of ambulatory clinics and hospital sitesin [place], [place] and [place]. This disclosure is being madepursuant to the Care Everywhere program and may not contain all information available regarding this patient. Last updated 17.[facility] Social History Tobacco Use Types Packs/Day Years [...]
[2024-05-10 22:18] LABS: Basophils Absolute Auto 0.07 K/mm3 (0.00-0.10); Basophils Percent Auto 0.5 % (0.0-1.0); Eosinophils Absolute Auto 0.36 K/mm3 (0.02-0.50); Eosinophils Percent Auto 2.4 % (1.0-6.0); Hematocrit 38.9 % (35.0-49.0); Immature Granulocyte Absolute 0.07 K/mm3 (0.00-0.00); Immature Granulocyte Percent A 0.5 % (0.0-0.0); Lymphocytes Absolute Auto 1.48 K/mm3 (1.10-4.50); Lymphocytes Percent Auto 9.7 % (18.0-42.0); Mean Corpuscular HGB Conc 33.4 g/dL (32-36); Mean Corpuscular Hemoglobin 29.9 pg (27.0-31.0); Mean Corpuscular Volume 89.4 fL (78.0-102.0); Mean Platelet Volume 10.3 fl (9.2-11.8); Monocytes Absolute Auto 0.78 K/mm3 (0.10-0.90); Monocytes Percent Auto 5.1 % (2.0-11.0); Neutrophils Absolute Auto 12.49 K/mm3 (1.70-7.20); Neutrophils Percent Auto 81.8 % (50.0-70.0); Platelet Count Result 347 K/mm3 (150-420); Red Blood Count 4.35 M/mm3 (4.20-5.40); Red Cell Distribution Width 13.2 % (11.6-14.4); White Blood Count 15.3 K/mm3 (4.8-10.8)
[2024-05-10 22:35] LABS: Alanine Aminotransferase 18 U/L (14-59); Albumin Level 3.9 g/dL (3.4-5.0); Alkaline Phosphatase 122 U/L (46-116); Anion Gap 9 mmol/L (4-12); Aspartate Amino Transferase 16 U/L (15-37); Bilirubin,Total 0.7 mg/dL (0.00-1.00); Blood Urea Nitrogen 22 mg/dL (7-18); Calcium 8.8 mg/dL (8.5-10.1); Carbon Dioxide 30 mmol/L (21-32); Chloride 104 mmol/L (98-108); Estimated CRCL calculation 56 ml/min; Estimated Glomerular Filt Rate 39; Glucose 128 mg/dL (70-99); Lipase 31 U/L (16-77); Magnesium 1.5 mg/dL (1.8-2.4); Osmolality Calculated 301 mOsm/kg (285-295); Potassium 3.3 mmol/L (3.5-5.1); Sodium 143 mmol/L (136-145); Total Protein 7.1 g/dL (6.4-8.2)
[2024-05-10 22:38] LABS: Lactic Acid Reflex 1.3 mmol/L (0.4-2.0)
[2024-05-10 22:58] LABS: Add Urine Microscopic? YES; Bilirubin Urine Negative (Negative); Blood Urine 3+ (Negative); Glucose Urine UA Trace (Negative); Ketones Urine Trace (Negative); Leukocyte Esterase Ur 3+ LEU/UL (Negative); Nitrate Urine Positive (Negative); Protein Urine 2+ (Negative)
[2024-05-10 23:11] LABS: Appearance Urine Cloudy (Clear); RBC Urine >75 /hpf (0-2); Squamous Epithelial Cell Urine Many /hpf (Few); WBC Clumps Urine Present /hpf; WBC Urine >75 /hpf (0-3)
[2024-05-10] MEDS: POTASSIUM CHLORIDE 20 MEQ ER TABLET PO (23:11)
[2024-05-10 23:12] LABS: Amorphous Sediment Urine Heavy; Bacteria Urine 2+ /hpf
[2024-05-10] MEDS: LORazepam INJ (*CRX) 2 MG/ML VIAL 0.5 MG IV PUSH (23:13)
[2024-05-10 23:16] LABS: Color Urine Dark Yellow (Yellow)
[2024-05-10] MEDS: SODIUM CHLORIDE 0.9% IV 500 ML 999 ML IV CONT (23:18)
[2024-05-10] MEDS: MAGNESIUM SULF 2 GM/WATER 50ML 2 GM/50 ML BAG IVPB (23:18)
[2024-05-10 23:25] VITALS: BP 124/62; PULSE 82; RESP 18; O2SAT 96
[2024-05-11] MEDS: SODIUM CHLORIDE 0.9% IV 1,000 ML 150 ML IV CONT (00:44)
--- NOTE | 2024-05-11 00:48 | PC.NURSE ---
Call placed to floor for bed, pt to be 23 hr obs admit to Rm 208.
[2024-05-11 01:14] VITALS: BP 132/79; PULSE 78; RESP 18; O2SAT 100; BMI 33.5
[2024-05-11 01:15] VITALS: O2SAT 100
--- NOTE | 2024-05-11 01:38 | ADMGEN ---
This patient, Amanda Dempsey, was admitted to 2nd Floor Room 208-2. Patient/family oriented to hospital policies and general routines including ID bracelet, bed and alarms, visiting hours, pain management, procedures, bathroom and other care routines, personal items, smoking policy, room service/diet, and visiting hours. Information on how to activate the Rapid Response Team has been discussed. Patient/Family are encouraged to report perceived risks to care and to ask questions if they do not understand what they are told or what they should do.
[2024-05-11 04:00] VITALS: BP 128/88; PULSE 70; PULSE 84; RESP 18; TEMP 36.6; O2SAT 100
--- NOTE | 2024-05-11 07:10 | P.SS_ITS ---
Same Day Admit/Disch: HPI History of Present Illness Chief complaint: UTI Narrative: Amanda Dempsey is a 54 year old female HPI - General Adult General Chief complaint: Urogenital-Female Stated complaint: UTI Time Seen by Provider: 05/10/24 21:33 History of Present Illness HPI narrative: Amanda is a 54F with a PMH of obesity, and previous episodes of pyelonephritis that progressed to sepsis that presented to the ED with urinary frequency. She thought she was dehydrated so she drank a lot of water but now feels very bloated and goes to the bathroom every few minutes. No fevers, flank pain, hematuria or suprapubic pain. She is very worked up. 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 Related Data PMFSH Past Medical History Medical History Obesity Hydronephrosis, left Kidney stone Sepsis Family History Family History Mother Pancreatic cancer Father Hypothyroidism Grandparent Heart disease Social History Social History Smoking status: Never smoker Second hand tobacco smoke exposure: No Alcohol intake: current Drinks per week: 3 Substance use: current Substance use type: marijuana Last use: 05/11/2024 Do You Feel Safe in your Home?: Yes Lack of Transportation: No Lack of Food: Sometimes True Current Housing: I Have Housing Concerned About Future Housing: No Difficulty Paying Gas/Electric Bills: No Difficulty Paying for Meds: No Currently Unemployed: No Education: High School Diploma/GED Difficulty w/ Childcare or Family Care: No Spiritual care concerns: No Same Day Admit/Disch: Med Pre-admit Medications Home Medications ?Medication ?Instructions ?Recorded ?Confirmed ?Type cetirizine 10 mg tablet 10 mg PO DAILY 05/11/24 05/11/24 History ciprofloxacin HCl 250 mg tablet 250 mg PO Q12H #10 tabs 05/11/24 Rx (Cipro) lorazepam 0.5 mg tablet 0.5 mg PO PRN anxiety 05/11/24 05/11/24 History metformin 500 mg tablet,extended 500 mg PO DAILY 05/11/24 05/11/24 History release 24 hr montelukast 10 mg tablet 10 mg PO DAILY 05/11/24 05/11/24 History phentermine 15 mg capsule 15 mg PO DAILY 05/11/24 05/11/24 History tramadol 50 mg tablet 50 mg PO PRN 05/11/24 05/11/24 History Review of Systems Review of Systems abdominal pain, not feeling well painful urination All systems reviewed & are unremarkable except as noted in HPI and below Exam Const: General: cooperative, healthy appearing, alert and awake Orientation/consciousness: oriented to person, oriented to place, oriented to time and patient oriented x3 Limitations: no limitations HENMT: Head: normal to inspection Face/Nose/Sinus: Normal external nose present Face and sinus: normal facial exam Mouth: Yes Normal oral and palatal mucosa present Throat: posterior oropharynx normal Eyes: General: appearance normal, both eyes and all related structures Neck: Neck: normal visual inspection Chest: Chest palpation & inspection: normal inspection of the chest Resp: Effort & Inspection: normal respiratory effort Cardio: Jugular venous distension: no JVD GI: Inspection: normal to inspection GI Palp: Yes abdominal tenderness : General: Yes CVA tenderness Back/Spine/Pelvis: Back: no CVA tenderness Skin: General skin exam: normal color, no rashes or lesions noted and turgor decreased Lesions: no lesions Neuro: General: oriented to person, oriented to place, oriented to time and patient oriented x3 Speech: normal speech Extrem: General: normal to inspection, full ROM and capillary refill normal Psych: Appearance: grossly normal Speech and movement: Normal speech and movement present Affect: normal affect Attitude: cooperative Thought content: Yes Normal thought content present Judgement: Good judgement present (Psych) DS: Data Data Completed and Pending Labs on day of discharge: Labs from last 24 hours 05/10/24 22:15 WBC 15.3 H RBC 4.35 Hgb 13.0 Hct 38.9 MCV 89.4 MCH 29.9 MCHC 33.4 RDW 13.2 Plt Count 347 MPV 10.3 Immature Gran % (Auto) 0.5 H Neut % (Auto) 81.8 H Lymph % (Auto) 9.7 L [place] % (Auto) 5.1 Eos % (Auto) 2.4 Baso % (Auto) 0.5 Lymph # (Auto) 1.48 [place] # (Auto) 0.78 Eos # (Auto) 0.36 Baso # (Auto) 0.07 Abs Immat Gran (auto) 0.07 H Absolute Neuts (auto) 12.49 H Absolute Nucleated RBC 0.00 Nucleated RBC % 0.0 Sodium 143 Potassium 3.3 L Chloride 104 Carbon Dioxide 30 Anion Gap 9 BUN 22 H Creatinine 1.41 H Estim Creat Clear Calc 56 Estimated GFR 39 L Glucose 128 H Calculated Osmolality 301 H Lactic Acid 1.3 Calcium 8.8 Magnesium 1.5 L Total Bilirubin 0.7 AST 16 ALT 18 Alkaline Phosphatase 122 H Total Protein 7.1 Albumin 3.9 Lipase 31 Urine Color Dark yellow Urine Appearance Cloudy A Urine pH 7.0 Ur Specific [place] 1.010 Urine Protein 2+ H Urine Glucose (UA) Trace H Urine Ketones Trace H Ur Blood (Man) 3+ H Urine Nitrate Positive H Urine Bilirubin Negative Urine Urobilinogen 4.0 H Leukocyte Esterase Rfl 3+ H Urine RBC >75 H Urine WBC >75 H Urine WBC Clumps Present H Ur Squamous Epith Cells Many H Amorphous Sediment Heavy H Urine Bacteria 2+ H DS: Summary Hospital Course Reason for hospitalization: Urinary tract infection, Renal stone Hospital Course: This is a 54 year old with a history of pyelonephritis and UTIs w sepsis. Patient came in the nausea and not feeling well painful urination. Patient was found to have a UTI with Kidney stone without obstruction but given her history of Sepsis we are admitting for 24 hour admit. Patient has to take her significant other for cancer treatment today and she is wanting to leave this morning. We will give her an additional dose of Rocephin and send her home on oral antibiotics. Patient has remained afebrile and I will have labs drawn this morning. It is important for her to take all of her medication and follow up with her primary care provider and make sure she is drinking plenty of water. Time Spent with Patient Time attestation: Total time spent providing and/or coordinating discharge services: DS: Admitting Diagnosis Discharge Date 05/11/2024 Admitting Diagnosis Renal stone, Urinary tract infection DS: Discharge Diagnosis Discharge Diagnosis (1) UTI (urinary tract infection): Code(s): N39.0 - Urinary tract infection, site not specified Status: Acute (2) Kidney stone on left side: Code(s): N20.0 - Calculus of kidney Status: Acute (3) Acute kidney injury: Code(s): N17.9 - Acute kidney failure, unspecified Status: Acute (4) Dehydration: Code(s): E86.0 - Dehydration Status: Acute Discharge Plan Discharge Attending physician on discharge: Lino Russo Discharging Clinician: Rosanne Arroyo Anticipated Discharge Date/Time: 05/11/24 07:23 Patient Disposition: Home, Self-Care Activity: may shower Diet: as tolerated Discharge Instructions: Drink plenty of water and take all of your medication Patient Instructions: Antibiotic Form, Kidney Stones (DC), Urinary Tract Infection in Women (DC), Dysuria (ED) Patient Language: Australian Stand Alone Forms: General Discharge Information Follow-up/Referrals: Sandy,MD Emeka [Primary Care Provider] - (call and schedule appointment) Discharge Medications: New ciprofloxacin HCl [Cipro] 250 mg tablet 250 mg PO Q12H Qty: 10 0RF Continued cetirizine 10 mg tablet 10 mg PO DAILY metformin 500 mg tablet extended release 24 hr 500 mg PO DAILY montelukast 10 mg tablet 10 mg PO DAILY lorazepam 0.5 mg tablet 0.5 mg PO PRN No Action phentermine 15 mg capsule 15 mg PO DAILY tramadol 50 mg tablet 50 mg PO PRN Date of admission: 05/11/24 00:49 Primary Care Provider: YolandaEmeka Admitting Provider: Lino Russo Attending physician on admission: Lino Russo Condition: Stable
[2024-05-11 07:36] LABS: Hematocrit 36.9 % (35.0-49.0); Hemoglobin 12.1 g/dL (12.0-15.0); Mean Corpuscular HGB Conc 32.8 g/dL (32-36); Mean Corpuscular Hemoglobin 29.7 pg (27.0-31.0); Mean Corpuscular Volume 90.7 fL (78.0-102.0); Mean Platelet Volume 10.5 fl (9.2-11.8); Platelet Count Result 304 K/mm3 (150-420); Red Blood Count 4.07 M/mm3 (4.20-5.40); Red Cell Distribution Width 13.4 % (11.6-14.4); White Blood Count 12.5 K/mm3 (4.8-10.8)
[2024-05-11 07:46] LABS: Anion Gap 8 mmol/L (4-12); Blood Urea Nitrogen 14 mg/dL (7-18); Calcium 8.6 mg/dL (8.5-10.1); Carbon Dioxide 27 mmol/L (21-32); Chloride 108 mmol/L (98-108); Estimated CRCL calculation 80 ml/min; Estimated Glomerular Filt Rate > 60; Glucose 97 mg/dL (70-99); Osmolality Calculated 296 mOsm/kg (285-295); Potassium 4.2 mmol/L (3.5-5.1); Sodium 143 mmol/L (136-145)
[2024-05-11] MEDS: cefTRIAXone 2 GM/NS 100 ML 2 GM/100 ML BAG IVPB (07:59)
[2024-05-11 08:00] VITALS: BP 121/67; PULSE 76; PULSE 84; RESP 16; TEMP 36.5; O2SAT 97
[2024-05-11] MEDS: DOCUSATE SODIUM 100 MG CAPSULE PO (08:08)
[2024-05-11] MEDS: ENOXAPARIN 40 MG/0.4 ML SYRINGE SUB-Q (08:08)
--- OUTSIDE RECORDS SUMMARY | 2024-05-11 08:46 | XMS_ITS | Referral Summary ---
Author Organization [facility] Address [address] [place] [address] Care Team Providers Care Try On Baster Name Role Phone Unavailable Primary Care Provider Unavailabl e Source Comments [facility],non-owned Affiliates and Associated Physician Practices is amultiple site organization consisting of ambulatory clinics and hospital sitesin [place], [place], [place] and [place]. This disclosure is being madepursuant to the Care Everywhere program and may not contain all information available regarding this patient. Last updated 17.[facility] [employer] Social History Tobacco Use Types Packs/Day Years Used Date Smoking Tobacco: Never Assessed Sex and Gender Information Value Date Recorded Sex Assigned at Not on file Gender Identity Not on file Sexual Orientation Not on file Plan of Treatment Not on file
--- OUTSIDE RECORDS SUMMARY | 2024-05-11 08:46 | XMS_ITS | Clinical Summary ---
Author Organization [facility] Address [address] [place] [address] Phone Care Team Providers Care Drier Feeder Name Role Phone Emeka Delgado MD Primary Care Provider [phone] Treasure Colvin MD Unavailable [phone] Allergies No known active allergies Medications [...] naloxone HCl (Narcan) 4 MG/0.1ML Liquid 1 Baker by Nasal route as needed (opioid overdose). [...] on file Legal Sex Female 5:35 PM MONTESSORI PARAPROFESSIONAL Gender Identity Not on file Sexual Orientation Not on file Last Filed Vital Signs Vital Sign Reading Time Taken Comments Blood Pressure 132/88 05/08/2022 9:14 AM MONTESSORI PARAPROFESSIONAL Pulse 99 05/08/2022 9:14 AM MONTESSORI PARAPROFESSIONAL Temperature 36.4 C (97.6 F) 05/08/2022 9:14 AM MONTESSORI PARAPROFESSIONAL Respiratory Rate 20 05/08/2022 9:14 AM MONTESSORI PARAPROFESSIONAL Oxygen Saturation 97% 05/08/2022 9:14 AM MONTESSORI PARAPROFESSIONAL Inhaled Oxygen Concentration - - Weight 104.3 [...] measures to stabilize the patient. Care Teams Drier Feeder Relationship Specialty Start Date End Date Emeka Delgado MD [address] [place] [address] PCP - General Family Medicine 04/18/22 Treasure Colvin MD [address] [facility], [address] [address] Consulting Physician Urology 04/24/22
--- OUTSIDE RECORDS SUMMARY | 2024-05-11 08:46 | XMS_ITS | Patient Health Summary ---
Author Organization [facility] Address [address] [place] [place] [address] Care Team Providers Care Eyeglass Frames Inspector Name Role Phone Unavailable Primary Care Provider Unavailabl e Note from [facility],non-owned Affiliates and Associated Physician Practices is amultiple site organization consisting of ambulatory clinics and hospital sitesin [place], [place], [place] and [place]. This disclosure is being madepursuant to the Care Everywhere program and may not contain all information available regarding this patient. Last updated 17.[facility] Social History Tobacco Use Types Packs/Day Years Used Date Smoking Tobacco: Never Assessed Sex and Gender Information Value Date Recorded Sex Assigned at Not on file Gender Identity Not on file Sexual Orientation Not on file
--- OUTSIDE RECORDS SUMMARY | 2024-05-11 08:46 | XMS_ITS | Clinical Summary ---
Author Organization [address] Address [address] [place] [facility] [address] Care Team Providers Care Knocker Out Name Role Phone Emeka Moreira MD Primary Care Provider [phone] Reginald Sauceda Unavailable [phone] Allergies No known active allergies Medications naloxone [...] Bronchospasms 3 mL nebu 4 times daily (home health care respiratory therapist) 03/08/2023 Active Active Problems Problem Noted Date [...] 03/08/2023 Assessment & Plan (04/11/2023 1:07 PM CURRICULUM SUPERVISOR): Has never smoked cigarettes in the past, has been exposed to tobacco during her entire life Patient reports over the last 6-7 years has been having exacerbations and falls; recently breathing has become acutely worse Encouraged patient to use Symbicort nightly Patient to follow-up with pulmonology Assessment & Plan (03/08/2023 5:10 PM CURRICULUM SUPERVISOR): Treated with atypical coverage twice, script sent [...] 07/19/2022 Assessment & Plan (04/11/2023 1:06 PM CURRICULUM SUPERVISOR): Stable, well controlled; patient reports generally improving; [...] stones Assessment & Plan (05/04/2022 9:39 AM CURRICULUM SUPERVISOR): 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; [...] 02/20/2022 Assessment & Plan (04/11/2023 1:06 PM CURRICULUM SUPERVISOR): Symptoms worse at night; has not been able to take pantoprazole due to lack of insurance coverage Change to omeprazole 40 mg daily Assessment & Plan (02/07/2023 2:04 PM CURRICULUM SUPERVISOR): Stable, generally well controlled; continue pantoprazole 40 mg daily Assessment & Plan (05/04/2022 9:40 AM CURRICULUM SUPERVISOR): Not well controlled; had severe episode of [...] cholelithiasis Assessment & Plan (02/20/2022 1:28 PM CURRICULUM SUPERVISOR): Not well controlled; has been worsening with weigh gain Continue pantoprazole 40 mg daily Nephrolithiasis 02/21/2021 Assessment & Plan (02/21/2021 5:50 PM CURRICULUM SUPERVISOR): Stable, improving; had infection secondary to renal stone, continue on antibiotics at this time Will continue to monitor Mild episode of recurrent major depressive disor ayala 02/21/2021 Assessment & Plan (04/11/2023 1:06 PM CURRICULUM SUPERVISOR): Stable, well controlled; no major depression at [...] daily Assessment & Plan (02/20/2022 1:29 PM CURRICULUM SUPERVISOR): Has been having worsening symptoms of anxiety; symptoms not present daily; but can occur up to 2 times per week -gets emotional, develops hives -start lorazepam 0.5 mg prn Assessment & Plan (02/21/2021 5:50 PM CURRICULUM SUPERVISOR): Patient has multiple stressors, difficulty sleep Will start venlafaxine 75 mg today Encounter for screening mammogram for breast can cer 01/10/2021 Assessment & Plan (01/10/2021 2:41 PM CURRICULUM SUPERVISOR): Order placed by pcp 07/2020, given number to call to schedule. Continue monthly SBE. Encounter for well woman tracee m with routine gynecological exam 01/10/2021 Assessment & Plan (01/10/2021 2:41 PM CURRICULUM SUPERVISOR): WWE: pap & breast exam completed today. Will call w/pap results when received. Instructed in SBE. to perform monthly in shower; preferably after menses. Aware that she may have some blood tinged discharge with wiping today after pap. Encounter for colorectal cancer screening 2020 Assessment & Plan (01/10/2021 2:40 PM CURRICULUM SUPERVISOR): Has kit at home, aware to call if no results are received within 2 weeks of kit submission. Class 2 obesity due to exces s calories without serious comorbidity with body mass index (BMI) of 36.0 to 36.9 in adult 01/10/2021 Assessment & Plan (04/11/2023 1:05 PM CURRICULUM SUPERVISOR): Not well controlled, mild increase in weight over the past 6 months; patient reports no relief with phentermine; difficulty with weight due to Trisha birthday and family visiting which increased caloric intake; patient reports increased appetite Patient plans to work to improve over the next few months; continue phentermine 15 mg daily, start metformin 500 mg daily Assessment & Plan (02/07/2023 2:04 PM CURRICULUM SUPERVISOR): Not well controlled; continues to have weight [...] activity Assessment & Plan (02/20/2022 1:30 PM CURRICULUM SUPERVISOR): Not well controlled; worsening; has been having weight gain due to holidays and stress eating Encourage limiting high calorie days to just holiday; continue to focus on limiting portions Assessment & Plan (01/10/2021 6:25 PM CURRICULUM SUPERVISOR): Discussed healthy diet and importance of regular physical activity. Closed fracture of left proximal humerus 021 Overview (08/05/2020): Added automatically from request for surgery [id number] Fracture of humeral head, closed, left, sequela 07/27/2020 Encounters Date Type Department Care Team Description 03/05/2024 Telephone [facility] [address] [address] Emeka Moreira MD Additional Services [...] on file Legal Sex Female 3:20 PM CURRICULUM SUPERVISOR Gender Identity Female 09/26/2023 9:37 PM CDT [...] 04/19/19 24 Medical Devices Implanted Type Area Floral Assistant Device Identifier Shelf Expiration Date Model / Serial / Lot Synthes 204.830 3.5mm 6mm 30mm 2.5mm Self Tap Small Hexagonal Socket Low Profile - [id number] Implanted:Qty: 1 on 08/08/2020 by Clarence Torres MD at [facility] Left: Humerus Synthes I 204.830 / / Synthes 241.901 Lcp Combi Philos [id number] 3 Hole Shaft Lock Compression - [id number] Implanted:Qty: 1 on 08/08/2020 by Clarence Torres MD at [facility] Left: Humerus Synthes I 241.901 / / Synthes 212.117 3.5mm 2.9mm 40mm Self Tap Lock Stardrive Conical Head T15 Full - [id number] Implanted:Qty: 3 on 08/08/2020 by Clarence Torres MD at [facility] Left: Humerus Synthes I 212.117 / / Synthes 212.119 3.5mm 2.9mm 45mm Self Tap Lock Stardrive Conical Head T15 Full - [id number] Implanted:Qty: 2 on 08/08/2020 by Clarence Torres MD at [facility] Left: Humerus Synthes I 212.119 / / Synthes 212.121 3.5mm 2.9mm 50mm Self Tap Lock Stardrive Conical Head T15 Full - [id number] Implanted:Qty: 2 on 08/08/2020 by Clarence Torres MD at [facility] Left: Humerus Synthes I 212.121 / / Synthes 212.109 3.5mm 2.9mm 26mm Self Tap Lock Stardrive Conical Head T15 Full - [id number] Implanted:Qty: 2 on 08/08/2020 by Clarence Torres MD at [facility] Left: Humerus Synthes I 212.109 / / Explanted Type Area Floral Assistant Device Identifier Shelf Expiration Date Model / Serial / Lot Synthes 212.108 3.5mm 2.9mm 24mm Self Tap Lock Stardrive Conical Head Pelvis T15 - [id number] Explanted:Qty: 1 on 08/08/2020 by Clarence Trores MD at [facility] Left: Humerus Synthes I 212.108 / / Procedures Procedure Name Priority Date/Time Associated Diagnosis Comments STOOL DNA COLOGUARD Routine 04/19/2023 10:00 AM CURRICULUM SUPERVISOR Colon cancer screening SCREENING MAMMOGRAM BILATERAL W ARMAAN Schedule Routine, Read Routine (OP Routine) 04/16/2022 3:23 PM CURRICULUM SUPERVISOR Encounter for screening mammogram for breast cancer PAP WITH REFLEX TO HIGH RISK HPV Routine 01/10/2021 10:51 AM CURRICULUM SUPERVISOR from Last 3 Months or Most Recently Relevant to Health Maintenance Results * Stool DNA - Cologuard (04/19/2023 10:00 AM CURRICULUM SUPERVISOR) Stool DNA - Cologuard Negative Negative [facility] (CLIA #:[id number]) Comment: NEGATIVE TEST RESULT. A negative Cologuard [...] Devine et al, N Engl J Med 2014;370(14):6631-9721) The normal value (reference range) for this assay is negative. COLOGUARD RE-SCREENING RECOMMENDATION: Periodic colorectal cancer screening is an important part of preventive healthcare for asymptomatic individuals at average risk for colorectal cancer. Following a negative Cologuard result, the [place] [employer] Society and U.S. Multi-Society Task Force screening guidelines recommend a Cologuard re-screening interval of 3 years. References: [place] [employer] Guideline for Colorectal Cancer Screening: https://www.cancer.org/cancer/lrroi-lnqnlp-pomwlc/qlfgjygfb-bqsvtmyde-cauiaxj/ac s-rec ommendations.html.; Darwin CORNEJO, Raad MITCHELL, Abdi VILLA, Colorectal Cancer Screening: Recommendations for Physicians and Patients from the U.S. Multi-Society Task Force on Colorectal Cancer Screening , Am J Gastroenterology 2017; 112:2863-4192. TEST DESCRIPTION: Composite algorithmic analysis of stool [...] (Lenard Bloom al, N Engl J Med 2014;370(14):0367-1985.) Cologuard may produce a false negative or false positive result (no colorectal cancer or precancerous polyp present at colonoscopy follow up). A negative Cologuard test result does not guarantee the absence of CRC or advanced adenoma (pre-cancer). The current Cologuard screening interval is every 3 years. ([place] [employer] Society and U.S. Multi-Society Task Force). Cologuard performance data in a 10,000 patient pivotal study using colonoscopy as the reference method can be accessed at the following location: www.[employer]/results. Additional description of the Cologuard test process, warnings and precautions can be found at www.[facility].com. Stool 04/19/2023 10:0 0 AM CURRICULUM SUPERVISOR 04/20/2023 1:13 PM CURRICULUM SUPERVISOR us Emeka Moreira MD LAB BODY FLUIDS AND STOOL S ORDERABLES Final Result [facility] (CLIA #:[id number]) [address] [place] [id number] * (ABNORMAL) Screening Mammogram Bilateral W Armaan (04/16/2022 3:23 PM CURRICULUM SUPERVISOR) Anatomical Region Laterality Modality Breast Bilateral Mammography 05/01/2022 8:27 AM CURRICULUM SUPERVISOR Addenda Addendum by Osman Sahu MD on 05/08/2022 5:11 PM CURRICULUM SUPERVISOR Prior examinations from 07/17/2019, 11/27/2016, 04/01/2014 and [...] Osman Sahu M.D. Impressions 05/01/2022 8:27 AM CURRICULUM SUPERVISOR Small bilateral oval masses. Recommend diagnostic bilateral mammogram and ultrasound. BI-RADS: 0 - Additional imaging evaluation is necessary. The patient will be contacted. Electronically signed by: Osman Sahu M.D. Narrative 05/01/2022 8:27 AM CURRICULUM SUPERVISOR EXAMINATION: SCREENING MAMMOGRAM BILATERAL W ARMAAN ORDERING [...] to High Risk HPV (01/10/2021 10:51 AM CURRICULUM SUPERVISOR) Pap test 01/10/2021 10:5 1 AM CURRICULUM SUPERVISOR 01/11/2021 10:51 AM CURRICULUM SUPERVISOR Narrative 01/13/2021 3:00 PM CURRICULUM SUPERVISOR [facility] Department of Pathology [address] [place] [id number] Final Report with Addendum Note to [...] the details. Patient Name: DUC CALVO Address: [address] [place] [address] Gender: F : 1970 (Age: 50) Service: Laboratory Location: Lab [facility] #: [id number] Patient Type: Ref Lab Taken: 01/10/2021 Received: 01/11/2021 Accessioned:: 01/12/2021 Reported: 01/13/2021 Physician(s): Heidy Sanchez, Sharon.N.P. Heidy Sanchez, Sharon.N.P. Diagnosis: Source of Specimen: Imaged Thinprep Pap Test plus HPV - Machine Fastener Cytologic Material Specimen Adequacy: - Specimen satisfactory [...] Imaged Thinprep Pap Test plus HPV - Machine Fastener Cytologic Material Clinical History: Last Menstrual Period: [...] determined by the Surgical Pathology Department at [facility] as part of an ongoing quality assurance inspector program and in compliance with federally mandated [...] characteristics determined by the Surgical Pathology Department [facility]. It has not been cleared or approved by the U. S. Food and Drug Administration. Heidy Priest NP LAB CYTOLOGY ORDERABLES Fin al Result from Last 3 Months or Most Recently Relevant to Health Maintenance Insurance [facility] [employer] COMPENSATION GENERIC Care Teams Knocker Out Relationship Specialty Start Date End Date Emeka Moreira MD [address] [place] [address] PCP - General Family Medicine 01/26/20 Reginald Sauceda PA [address] [place] [address] Physician Data Storage Specialist Orthopedic Surgery 08/08/20
--- OUTSIDE RECORDS SUMMARY | 2024-05-11 08:46 | XMS_ITS | Clinical Summary ---
Author Organization [facility] Address [facility] [place] [address] Care Team Providers Care Traffic Control Operator Name Role Phone Min Gimenez MD Primary Care Provider [phone] Family History Medical History Relation Comments Pancreas [...] year would seem adequate. Katiuska Salmeron Akbar ASSISTANT PROFESSOR OF MARINE BIOLOGY MAMMO Final Re sult from Last 3 Months or Most Recently Relevant to Health Maintenance Insurance Care Teams Traffic Control Operator Relationship Specialty Start Date End Date Min Gimenez MD [address] [place] [id number] PCP - General FAMILY PRACTICE 07/17/19
--- OUTSIDE RECORDS SUMMARY | 2024-05-11 08:46 | XMS_ITS | Referral Summary ---
Author Organization [facility] [place] [address] [facility] Address [address] [place] [address] Care Team Providers Care Statistical Geneticist Name Role Phone Emeka Moreira MD Primary Care Provider [phone] Reginald Saucdea PA Unavailable [phone] Encounters Date Type Department Care Team Description 03/05/2024 Telephone [facility] [address] [place] [address] Emeka Moreira MD Additional Services [...] Bronchospasms 3 mL nebu 4 times daily (socially responsible investment adviser) 03/08/2023 Active Active Problems Problem Noted Date [...] 03/08/2023 Assessment & Plan (04/11/2023 1:07 PM JIG BORE TOOL MAKER): Has never smoked cigarettes in the past, has been exposed to tobacco during her entire life Patient reports over the last 6-7 years has been having exacerbations and falls; recently breathing has become acutely worse Encouraged patient to use Symbicort nightly Patient to follow-up with pulmonology Assessment & Plan (03/08/2023 5:10 PM JIG BORE TOOL MAKER): Treated with atypical coverage twice, script sent [...] 07/19/2022 Assessment & Plan (04/11/2023 1:06 PM JIG BORE TOOL MAKER): Stable, well controlled; patient reports generally improving; [...] stones Assessment & Plan (05/04/2022 9:39 AM JIG BORE TOOL MAKER): 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; [...] 02/20/2022 Assessment & Plan (04/11/2023 1:06 PM JIG BORE TOOL MAKER): Symptoms worse at night; has not been able to take pantoprazole due to lack of insurance coverage Change to omeprazole 40 mg daily Assessment & Plan (02/07/2023 2:04 PM JIG BORE TOOL MAKER): Stable, generally well controlled; continue pantoprazole 40 mg daily Assessment & Plan (05/04/2022 9:40 AM JIG BORE TOOL MAKER): Not well controlled; had severe episode of [...] cholelithiasis Assessment & Plan (02/20/2022 1:28 PM JIG BORE TOOL MAKER): Not well controlled; has been worsening with weigh gain Continue pantoprazole 40 mg daily Nephrolithiasis 02/21/2021 Assessment & Plan (02/21/2021 5:50 PM JIG BORE TOOL MAKER): Stable, improving; had infection secondary to renal stone, continue on antibiotics at this time Will continue to monitor Mild episode of recurrent major depressive disor ayala 02/21/2021 Assessment & Plan (04/11/2023 1:06 PM JIG BORE TOOL MAKER): Stable, well controlled; no major depression at [...] daily Assessment & Plan (02/20/2022 1:29 PM JIG BORE TOOL MAKER): Has been having worsening symptoms of anxiety; symptoms not present daily; but can occur up to 2 times per week -gets emotional, develops hives -start lorazepam 0.5 mg prn Assessment & Plan (02/21/2021 5:50 PM JIG BORE TOOL MAKER): Patient has multiple stressors, difficulty sleep Will start venlafaxine 75 mg today Encounter for screening mammogram for breast can cer 01/10/2021 Assessment & Plan (01/10/2021 2:41 PM JIG BORE TOOL MAKER): Order placed by pcp 07/2020, given number to call to schedule. Continue monthly SBE. Encounter for well woman tracee m with routine gynecological exam 01/10/2021 Assessment & Plan (01/10/2021 2:41 PM JIG BORE TOOL MAKER): WWE: pap & breast exam completed today. Will call w/pap results when received. Instructed in SBE. to perform monthly in shower; preferably after menses. Aware that she may have some blood tinged discharge with wiping today after pap. Encounter for colorectal cancer screening 2020 Assessment & Plan (01/10/2021 2:40 PM JIG BORE TOOL MAKER): Has kit at home, aware to call if no results are received within 2 weeks of kit submission. Class 2 obesity due to exces s calories without serious comorbidity with body mass index (BMI) of 36.0 to 36.9 in adult 01/10/2021 Assessment & Plan (04/11/2023 1:05 PM JIG BORE TOOL MAKER): Not well controlled, mild increase in weight over the past 6 months; patient reports no relief with phentermine; difficulty with weight due to [place] birthday and family visiting which increased caloric intake; patient reports increased appetite Patient plans to work to improve over the next few months; continue phentermine 15 mg daily, start metformin 500 mg daily Assessment & Plan (02/07/2023 2:04 PM JIG BORE TOOL MAKER): Not well controlled; continues to have weight [...] activity Assessment & Plan (02/20/2022 1:30 PM JIG BORE TOOL MAKER): Not well controlled; worsening; has been having weight gain due to holidays and stress eating Encourage limiting high calorie days to just holiday; continue to focus on limiting portions Assessment & Plan (01/10/2021 6:25 PM JIG BORE TOOL MAKER): Discussed healthy diet and importance of regular physical activity. Closed fracture of left proximal humerus 021 Overview (08/05/2020): Added automatically from request for surgery [id number] Fracture of humeral head, closed, left, sequela [...] on file Legal Sex Female 3:20 PM JIG BORE TOOL MAKER Gender Identity Female 09/26/2023 9:37 PM CDT [...] on file Medical Devices Implanted Type Area Door Attendant Device Identifier Shelf Expiration Date Model / Serial / Lot Synthes 204.830 3.5mm 6mm 30mm 2.5mm Self Tap Small Hexagonal Socket Low Profile - [id number] Implanted:Qty: 1 on 08/08/2020 by Clarence Torres MD at [facility] [employer] [facility] Left: Humerus Synthes I 204.830 / / Synthes 241.901 Lcp Combi Philos [id number] 3 Hole Shaft Lock Compression - [id number] Implanted:Qty: 1 on 08/08/2020 by Clarence Torres MD at [facility] [employer] [facility] Left: Humerus Synthes I 241.901 / / Synthes 212.117 3.5mm 2.9mm 40mm Self Tap Lock Stardrive Conical Head T15 Full - [id number] Implanted:Qty: 3 on 08/08/2020 by Clarence Torres MD at [facility] [employer] [facility] Left: Humerus Synthes I 212.117 / / Synthes 212.119 3.5mm 2.9mm 45mm Self Tap Lock Stardrive Conical Head T15 Full - [id number] Implanted:Qty: 2 on 08/08/2020 by Clarence Torres MD at [employer] [facility] Left: Humerus Synthes I 212.119 / / Synthes 212.121 3.5mm 2.9mm 50mm Self Tap Lock Stardrive Conical Head T15 Full - [id number] Implanted:Qty: 2 on 08/08/2020 by Clarence Torres MD at [employer] [facility] Left: Humerus Synthes I 212.121 / / Synthes 212.109 3.5mm 2.9mm 26mm Self Tap Lock Stardrive Conical Head T15 Full - [id number] Implanted:Qty: 2 on 08/08/2020 by Clarence Torres MD at [facility] [employer] [facility] Left: Humerus Synthes I 212.109 / / Explanted Type Area Door Attendant Device Identifier Shelf Expiration Date Model / Serial / Lot Synthes 212.108 3.5mm 2.9mm 24mm Self Tap Lock Stardrive Conical Head Pelvis T15 - [id number] Explanted:Qty: 1 on 08/08/2020 by Clarence Torres MD at [employer] [facility] Left: Humerus Synthes I 212.108 / / Procedures Procedure Name Priority Date/Time Associated Diagnosis Comments STOOL DNA COLOGUARD Routine 04/19/2023 10:00 AM JIG BORE TOOL MAKER Colon cancer screening SCREENING MAMMOGRAM BILATERAL W ARMAAN Schedule Routine, Read Routine (OP Routine) 04/16/2022 3:23 PM JIG BORE TOOL MAKER Encounter for screening mammogram for breast cancer PAP WITH REFLEX TO HIGH RISK HPV Routine 01/10/2021 10:51 AM JIG BORE TOOL MAKER from Last 3 Months or Most Recently Relevant to Health Maintenance Results * Stool DNA - Cologuard (04/19/2023 10:00 AM JIG BORE TOOL MAKER) Stool DNA - Cologuard Negative Negative [facility] (CLIA #:[id number]) Comment: NEGATIVE TEST RESULT. A negative Cologuard [...] (Lenard Bloom al, N Engl J Med 2014;370(14):6165-7279) The normal value (reference range) for this assay is negative. COLOGUARD RE-SCREENING RECOMMENDATION: Periodic colorectal cancer screening is an important part of preventive healthcare for asymptomatic individuals at average risk for colorectal cancer. Following a negative Cologuard result, the [place] Cancer Society and U.S. Multi-Society Task Force screening guidelines recommend a Cologuard re-screening interval of 3 years. References: [place] [employer] Guideline for Colorectal Cancer Screening: https://www.cancer.org/cancer/edfci-bnlffo-gymnzf/gkypucavq-ukyxhfslo-fcahtmw/ac s-rec ommendations.html.; Darwin DK, Raad MITCHELL, Abdi LaboyK, Colorectal Cancer Screening: Recommendations for Physicians and Patients from the U.S. Multi-Society Task Force on Colorectal Cancer Screening , Am J Gastroenterology 2017; 112:7945-4687. TEST DESCRIPTION: Composite algorithmic analysis of stool [...] (Lenard Bloom al, N Engl J Med 2014;370(14):2784-0268.) Cologuard may produce a false negative or false positive result (no colorectal cancer or precancerous polyp present at colonoscopy follow up). A negative Cologuard test result does not guarantee the absence of CRC or advanced adenoma (pre-cancer). The current Cologuard screening interval is every 3 years. ([place] Cancer Society and U.S. Multi-Society Task Force). Cologuard performance data in a 10,000 patient pivotal study using colonoscopy as the reference method can be accessed at the following location: www.[employer].Prior Knowledge/results. Additional description of the Cologuard test process, warnings and precautions can be found at www.cologenosiXrd.com. Stool 04/19/2023 10:0 0 AM JIG BORE TOOL MAKER 04/20/2023 1:13 PM JIG BORE TOOL MAKER us Emeka Moreira MD LAB BODY FLUIDS AND STOOL S ORDERABLES Final Result [employer] (CLIA #:[id number]) [address] [place] [address] * (ABNORMAL) Screening Mammogram Bilateral W Armaan (04/16/2022 3:23 PM JIG BORE TOOL MAKER) Anatomical Region Laterality Modality Breast Bilateral Mammography 05/01/2022 8:27 AM JIG BORE TOOL MAKER Addenda Addendum by Osman Sahu MD on 05/08/2022 5:11 PM JIG BORE TOOL MAKER Prior examinations from 07/17/2019, 11/27/2016, 04/01/2014 and [...] Osman Sahu M.D. Impressions 05/01/2022 8:27 AM JIG BORE TOOL MAKER Small bilateral oval masses. Recommend diagnostic bilateral mammogram and ultrasound. BI-RADS: 0 - Additional imaging evaluation is necessary. The patient will be contacted. Electronically signed by: Osman Sahu M.D. Narrative 05/01/2022 8:27 AM JIG BORE TOOL MAKER EXAMINATION: SCREENING MAMMOGRAM BILATERAL W ARMAAN ORDERING [...] to High Risk HPV (01/10/2021 10:51 AM JIG BORE TOOL MAKER) Pap test 01/10/2021 10:5 1 AM JIG BORE TOOL MAKER 01/11/2021 10:51 AM JIG BORE TOOL MAKER Narrative 01/13/2021 3:00 PM JIG BORE TOOL MAKER [facility] Department of Pathology [address] [place] [id number] Final Report with Addendum Note to [...] the details. Patient Name: DUC CALVO Address: [address] [place] [address] Gender: F : 1970 (Age: 50) Service: Laboratory Location: Lab [facility] #: [id number] Patient Type: [facility] Lab Taken: 01/10/2021 Received: 01/11/2021 Accessioned:: 01/12/2021 Reported: 01/13/2021 Physician(s): Sharon Tran.NTanya Sanchez, Sharon.N.PYaneth Diagnosis: Source of Specimen: Imaged Thinprep Pap Test plus HPV - Rock Lather Cytologic Material Specimen Adequacy: - Specimen satisfactory [...] Imaged Thinprep Pap Test plus HPV - Rock Lather Cytologic Material Clinical History: Last Menstrual Period: [...] determined by the Surgical Pathology Department at [facility] as part of an ongoing quality assurance director program and in compliance with federally mandated [...] characteristics determined by the Surgical Pathology Department [facility]. It has not been cleared or approved by the U. S. Food and Drug Administration. Heidy Priest NP LAB CYTOLOGY ORDERABLES Fin al Result from Last 3 Months or Most Recently Relevant to Health Maintenance Insurance [id number] [place] [address] [facility] [employer] COMPENSATION GENERIC Care Teams Statistical Geneticist Relationship Specialty Start Date End Date Emeka [place] [address] PCP - General Family Medicine 01/26/20 Reginald Sauceda PA [address] [place] [address] Physician Qi Specialist Orthopedic Surgery 08/08/20
--- OUTSIDE RECORDS SUMMARY | 2024-05-11 08:46 | XMS_ITS | Encounter Summary ---
Author Organization [facility] Address [facility] [place] [address] Care Team Providers Care Loom Setter Fourdrinier Name Role Phone Min Gimenez MD Primary Care Provider [phone] Encounter Details Date Type Department Care Team (Late st Contact Info) Description 08/09/2018 Abstract SFL CONVERSION [address] [place] [address] , Generic Conversion, Social History Tobacco Use [...] on filedocumented in this encounter Care Teams Loom Setter Fourdrinier Relationship Specialty Start Date End Date Min Gimenez MD [address] [place] [id number] PCP - General FAMILY PRACTICE 07/17/19 documented as of this encounter
--- OUTSIDE RECORDS SUMMARY | 2024-05-11 08:46 | XMS_ITS | Clinical Summary ---
Author Organization [facility] [employer] Address [address] [place] [address] Care Team Providers Care Audiovisual Technician Name Role Phone Unavailable Primary Care Provider Unavailabl e Source Comments [facility] [employer],non-owned Affiliates and Associated Physician Practices is amultiple site organization consisting of ambulatory clinics and hospital sitesin [place], [place], [place] and [place]. This disclosure is being madepursuant to the Care Everywhere program and may not contain all information available regarding this patient. Last updated 17.[facility] [employer] Social History Tobacco Use Types Packs/Day Years [...]
--- NOTE | 2024-05-11 09:25 | PC.NURSE ---
Discharge instructions given to patient and patient voiced understanding. Personal belongings sent home with patient. Patient left unit in w/c, accompanied by nurse. Patient left hospital grounds in privately owned vehicle. No devices present at discharge.
--- NOTE | 2024-05-12 09:47 | PC.NURSE ---
Discharge call back complete, sore but feeling better, antibiotic filled didn't note an Rx for tramadol, advised to check with PMD regarding continuing this medication as there was not a script for it, no other questions noted
== END 2024-05-11 09:25 | disposition home or self-care (01) ==
LOC: CHSED 05-11 00:30 → CHS2ND 05-11 07:25
PROVIDERS: Nurse Practitioner Family; Admitting Provider Internal Medicine; Emergency Provider Family Medicine; PCP Hospitalist; Visit Provider Internal Medicine
DX: N39.0 Urinary tract infection, site not specified (principal); N20.0 Calculus of kidney; N17.9 Acute kidney failure, unspecified; E86.0 Dehydration; E66.9 Obesity, unspecified; Z68.33 Body mass index [BMI] 33.0-33.9, adult; Z79.84 Long term (current) use of oral hypoglycemic drugs; Z79.899 Other long term (current) drug therapy
CPT/HCPCS: 36415; 74177; 80048; 80053; 81001; 83605; 83690; 83735; 85025; 85027; 87086; 87186; 96361; 96365; 96366; 96367; 96372; 96374; 96375; 99285; A9270; G0378; G0379; J0696; J1650; J2060; J3475; J7030; J7040; Q9967